=== PATIENT | male | born 1955 | race Caucasian/White ===

== ENCOUNTER 2020-06-13 14:54 | Inpatient (IN) | payer MEDICARE, OTHER ==
[~2020-06-13] VITALS: Ht 167.6 cm; Wt 47.2 kg
[2020-06-13] MEDS ORDERED: IV NS 0.9% 500 ML BAG IV ONE (15:00)
--- NOTE | 2020-06-13 15:00 | NUR ---
[id number] FRM JAIL FOR GENERALIZED WEAKNESS AND CONFUSION.BG 127 MACHINE RIVETER . pt alert and verbally responsive. no c/o pain or discomfort at this time. awaiting for MD haney
--- NOTE | 2020-06-13 15:09 | NUR ---
iv line established, blood drawn and setn to lab
--- NOTE | 2020-06-13 15:59 | NUR ---
urine collected and sent to lab
[2020-06-13 16:06] LABS: BASOPHILS % (AUTO) 0.2 % (0.0-2.0); EOSINOPHILS % (AUTO) 0.2 % (0.0-6.0); HEMATOCRIT 44 % (39-51); HEMOGLOBIN 14.4 g/dL (13.5-17.5); LYMPHOCYTES # (AUTO) 1.2 /CMM (0.8-4.8); LYMPHOCYTES % (AUTO) 17.2 % (20.0-44.0); MEAN CORPUSCULAR HGB CONC 33 g/dl (31.0-36.0); MEAN CORPUSCULAR VOLUME 100 fL (80-96); MONOCYTES # (AUTO) 0.3 /CMM (0.1-1.30); MONOCYTES % (AUTO) 3.9 % (2.0-12.0); NEUTROPHILS # (AUTO) 5.3 /CMM (1.8-8.9); NEUTROPHILS % (AUTO) 78.5 % (43.0-81.0); PLATELET COUNT (AUTO) 186 /CMM (150-450); RED BLOOD CELL COUNT(AUTO) 4.39 MIL/uL (4.5-6.0); WHITE BLOOD COUNT (AUTO) 6.8 K/uL (4.3-11.0)
[2020-06-13 16:17] LABS: CALCIUM, SERUM 8.8 mg/dL (8.5-10.1); CARBON DIOXIDE 30 mmol/L (21-32); CHLORIDE 104 mmol/L (98-107); CREATININE 0.8 mg/dL (0.6-1.3); GLUCOSE 106 mg/dL (74-106); POTASSIUM 4.2 mmol/L (3.5-5.1); SODIUM SERUM 140 mmol/L (136-145); UREA NITROGEN, BLOOD 19 mg/dL (7-18)
[2020-06-13 16:17] LABS: BILIRUBIN,URINE Negative (NEGATIVE); BLOOD, URINE Negative Ery/uL (NEGATIVE); COLOR,URINE YELLOW (YELLOW); LEUKOCYTE ESTERASE ,URINE Negative (NEGATIVE); NITRITE, URINE Negative (NEGATIVE); PROTEIN,URINE Negative (NEGATIVE); UGLUCOSE Negative (NEGATIVE); UROBILINOGEN,URINE 0.2 EU/dL (0.2)
[2020-06-13 16:18] LABS: SERUM AMMONIA < 10 umol/L (11-32)
[2020-06-13 16:25] LABS: ALANINE AMINOTRANSFERASE 51 U/L (12-78); ALBUMIN 3.7 g/dL (3.4-5.0); ALKALINE PHOSPHATASE 74 U/L (46-116); ASPARTATE AMINOTRANSFERASE 28 U/L (15-37); BILIRUBIN,DIRECT 0.1 mg/dL (0.0-0.2); BILIRUBIN,TOTAL 0.5 mg/dL (0.2-1.0); TOTAL PROTEIN, SERUM 7.4 g/dL (6.4-8.2)
[2020-06-13] MEDS ORDERED: ACET325T53 PO (16:27)
[2020-06-13] MEDS ORDERED: ZINC1CAP3 PO (16:27)
[2020-06-13] MEDS ORDERED: NA P133E RC (16:27)
[2020-06-13] MEDS ORDERED: DOCU-141 PO (16:27)
[2020-06-13] MEDS ORDERED: ASCO500C17 PO (16:27)
[2020-06-13] MEDS ORDERED: FAMO20TA80 PO (16:27)
[2020-06-13] MEDS ORDERED: RISP0.5T5 PO (16:27)
[2020-06-13] MEDS ORDERED: MAGN400O6 PO (16:27)
[2020-06-13] MEDS ORDERED: SENN-175 PO (16:27)
[2020-06-13] MEDS ORDERED: MULT-188 PO (16:27)
[2020-06-13] MEDS ORDERED: MEMA10TA PO (16:27)
[2020-06-13] MEDS ORDERED: DONE5TAB7 PO (16:27)
--- NOTE | 2020-06-13 17:26 | NUR ---
AWAITING CALL FROM ADMITING MD.
--- NOTE | 2020-06-13 18:00 | NUR ---
CALLED NURSING SUP FOR TELE BED.
[2020-06-13] MEDS ORDERED: MAGNESIUM HYDROXIDE 30 ML UDC PO PRN (18:30)
[2020-06-13] MEDS ORDERED: Z GUARD REMEDY 2 OZ OINT TP PRN (18:30)
[2020-06-13] MEDS ORDERED: MAG HYDROX/AL HYDROX/SIMETH 30 ML UDC PO PRN (18:30)
[2020-06-13] MEDS ORDERED: ACETAMINOPHEN 325 MG TABLET PO PRN (18:30)
[2020-06-13] MEDS ORDERED: ZOLPIDEM TARTRATE 5 MG TABLET PO PRN (18:30)
[2020-06-13] MEDS ORDERED: HYDROCODONE/APAP 5/325MG TABLET PO PRN (18:30)
[2020-06-13] MEDS ORDERED: ONDANSETRON HCL/PF 4 MG/2 ML VIAL IVP PRN (18:30)
[2020-06-13 19:45] LABS: ABG BASE EXCESS -0.9 mmol/L; ABG OXYGEN SATURATION 96.3 % (92.0-98.5); ABG PCO2 41.5 mmHg (35.0-45.0); ABG PH 7.383 (7.350-7.450); ABG PO2 90.6 mmHg (75.0-100.0); AaDO2 9.4 mmHg; COHb 0.2 % (0.5-1.5); MetHb 0.3 % (0.0-1.5); O2Hb 95.8 % (94.0-97.0); SITE, ABG Right Radial; VENT MODE, BG room air
--- NOTE | 2020-06-13 21:38 | NUR ---
NEW BED GIVE BY WHOLESALE DIAMOND BROKER 250 TELE OVERFLOW TO ICU
--- NOTE | 2020-06-13 21:38 | NUR ---
WAIT FOR FRUIT HARVESTER MACHINE OPERATOR TO CALL, NEED MORE NURSES TO ACCOMODATE PATIENT.
--- NOTE | 2020-06-14 02:11 | NUR ---
REPORT GIVEN TO ED RN FOR ROBBI.
--- NOTE | 2020-06-14 02:24 | NUR ---
PATIENT TAKEN TO ASSIGNED ROOM FOR ROBBI.
[2020-06-14] MEDS: IV D5/0.45 NACL 1,000 ML IV PRN ×2 (02:28→19:33)
[2020-06-14 04:00] VITALS: BP 114/47
--- NOTE | 2020-06-14 04:39 | NUR ---
ELECTRONIC TECH PT WAS ADMITTED FROM ER WITH DIAGNOSIS ACUTE ENCEPHALOPATHY. PT IS TELE STATUS. RODGERS VIRUS RAPID TEST PENDING.PT IS AWAKE, ALERT, ORIENTED X 2. SPEECH IS CLEAR. MOVES ALL EXTREMITIES, LEGS ARE WEAKER. VSS, AFEBRILE, SCOPE-SR-SB. LUNGS ARE CLEAR, PT IS ON RA. IV SITE-RIGHT AC # 18. MAIN IV D51/2 NS @ 75 ML/HR. F/C DRAINS SUFFICIENT AMT. OF CLEAR YELLOW URINE.
[2020-06-14 06:54] LABS: BASOPHILS % (AUTO) 0.5 % (0.0-2.0); EOSINOPHILS % (AUTO) 0.3 % (0.0-6.0); HEMATOCRIT 43 % (39-51); HEMOGLOBIN 14.4 g/dL (13.5-17.5); LYMPHOCYTES # (AUTO) 1.3 /CMM (0.8-4.8); LYMPHOCYTES % (AUTO) 20.5 % (20.0-44.0); MEAN CORPUSCULAR HGB CONC 33 g/dl (31.0-36.0); MEAN CORPUSCULAR VOLUME 100 fL (80-96); MONOCYTES # (AUTO) 0.4 /CMM (0.1-1.30); MONOCYTES % (AUTO) 5.9 % (2.0-12.0); NEUTROPHILS # (AUTO) 4.6 /CMM (1.8-8.9); NEUTROPHILS % (AUTO) 72.8 % (43.0-81.0); PLATELET COUNT (AUTO) 175 /CMM (150-450); RED BLOOD CELL COUNT(AUTO) 4.34 MIL/uL (4.5-6.0); WHITE BLOOD COUNT (AUTO) 6.3 K/uL (4.3-11.0)
[2020-06-14 07:28] LABS: CALCIUM, SERUM 8.7 mg/dL (8.5-10.1); CREATININE 0.7 mg/dL (0.6-1.3); MAGNESIUM 2.5 mg/dL (1.8-2.4); PHOSPHORUS 3.2 mg/dL (2.5-4.9); POTASSIUM 3.8 mmol/L (3.5-5.1)
--- NOTE | 2020-06-14 07:30 | NUR ---
PT RECEIVED IN BED, EYES OPEN ALERT AND ORIENTED X 2. PT ON RA O2 SATURATION 100% RA. NO RESPIRATORY DISTRESS OR SOB. PT HAS RAC 18 THAT IS INFILTRATED AND REMOVED. IV D5 1/2 NS TO BE RUN. BED IN LOCKED LOWEST POSITION, CALL LIGHT WITHIN REACH. ALL SAFETY MEASURES IN PLACE. WILL CONTINUE TO MONITOR CLOSELY
[2020-06-14 07:31] LABS: THYROID STIMULATING HORMONE 1.662 uIU/mL (0.358-3.74)
[2020-06-14 08:00] VITALS: BP 127/77
--- NOTE | 2020-06-14 08:55 | NUR ---
NEW IV STARTED: RFA #20. CLEAR AND PATENT WITH GOOD BLOOD RETURN. IV D5 1/2 NS RESUMED
[2020-06-14] MEDS ORDERED: PANTOPRAZOLE 40 MG VIAL IV SCH (09:00)
[2020-06-14] MEDS ORDERED: DEXTROSE 50%-WATER 50 ML DISP.SYRIN IV PRN (14:00)
[2020-06-14 16:00] VITALS: BP 127/78
--- NOTE | 2020-06-14 16:43 | NUR ---
PER ICU ARCHITECTURE PROFESSOR ROHIT PATIENT CONFUSED AND KEEP GETTING OUT OF BED,UNABLE TO FOLLOW COMMAND,OBTAINED ORDER FOR SITTER.NURSING SUP NOTIFIED.
[2020-06-14 16:58] VITALS: BP 130/79
--- NOTE | 2020-06-14 17:00 | NUR ---
REPORT GIVEN TO BASSAM RENO IN [place] FOR TRANSFER OF CARE.
[2020-06-14] MEDS: BLOOD SUGAR DIAGNOSTIC 1 EACH STRIP IN SCH ×2 (17:30→21:30)
--- NOTE | 2020-06-14 17:30 | NUR ---
RN NOTES RECEIVED PT FROM ICU. REPORT FROM TAM BANEGAS. WILL CONTINUE TO MONITOR
[2020-06-14] MEDS: risperiDONE 0.25 MG TABLET PO SCH (18:59)
--- NOTE | 2020-06-14 19:03 | NUR ---
patient more awake and alert,refuse romo wanted it remove.
--- NOTE | 2020-06-14 19:03 | NUR ---
aable to swallow ice chips no difficulty.
--- NOTE | 2020-06-14 19:04 | NUR ---
dr. martini made aware will discontinue romo and will give po meds.
--- NOTE | 2020-06-14 19:30 | NUR ---
RN OPENING NOTES PATIENT ALERT AND ORIENTED X1, CONFUSED. NO SOB OR ANY RESPIRATORY DISTRESS. ON ROOM AIR, 02 SAT 98%. DENIES ANY PAIN AT THIS TIME. WITH RIGHT FA #18, INTACT AND PATENT WITH D5 1/2 NS @ 75 MLS/HR. NO S/S OF ANY INFILTRATION. BED LOCKED AND IN LOWEST POSITION. SIDERAILS UP X2. ALL SAFETY MEASURES IMPLEMENTED. CALL LIGHT WITHIN REACH. WILL COTNINUE TO MONITOR.
--- NOTE | 2020-06-14 19:31 | NUR ---
RN CLOSING NOTES PT RESTING IN BED. A/O X1, CONFUSED. R FA INTACT, PATENT AND FLUSHED. D5 1/2 NS RUNNING @75MLS/HR INFUSING WELL. REMOVED SALDANA CATH ORDERED BY . ABLE TO TOLERATE ICE CHIPS AND WATER. SAFETY MEASURES IN PLACE. CALL LIGHT WITHIN REACH. BED ALARM ON. BED LOCKED AND AT LOWEST POSITION. WILL ENDORSE TO NIGHT NURSE FOR ROBBI
[2020-06-14 20:00] VITALS: BP 128/75
[2020-06-14] MEDS: DONEPEZIL 5 MG TABLET PO SCH (21:25)
[2020-06-14] MEDS: INSULIN REGULAR, HUMAN 100 UNIT/ML 3 ML VIAL SQ PRN (21:32)
--- NOTE | 2020-06-14 21:40 | NUR ---
GAVE DUE MEDICATIONS PO. PATIENT TOLERATED WELL. NO COUGHING OR ASPIRATION NOTED. PATIENT ABLE TO DRINK 50 ML OF WATER WITHOUT DIFFICULTY. WILL CONTINUE TO MONITOR.
[2020-06-15] VITALS: BP 109/71
[2020-06-15 04:00] VITALS: BP 129/83
[2020-06-15 06:14] LABS: BASOPHILS % (AUTO) 0.4 % (0.0-2.0); EOSINOPHILS % (AUTO) 0.5 % (0.0-6.0); HEMATOCRIT 43 % (39-51); HEMOGLOBIN 14.6 g/dL (13.5-17.5); LYMPHOCYTES # (AUTO) 1.3 /CMM (0.8-4.8); LYMPHOCYTES % (AUTO) 24.8 % (20.0-44.0); MEAN CORPUSCULAR HGB CONC 34 g/dl (31.0-36.0); MEAN CORPUSCULAR VOLUME 98 fL (80-96); MONOCYTES # (AUTO) 0.4 /CMM (0.1-1.30); MONOCYTES % (AUTO) 7.5 % (2.0-12.0); NEUTROPHILS # (AUTO) 3.6 /CMM (1.8-8.9); NEUTROPHILS % (AUTO) 66.8 % (43.0-81.0); PLATELET COUNT (AUTO) 197 /CMM (150-450); RED BLOOD CELL COUNT(AUTO) 4.41 MIL/uL (4.5-6.0); WHITE BLOOD COUNT (AUTO) 5.4 K/uL (4.3-11.0)
[2020-06-15 06:45] LABS: CREATININE 0.8 mg/dL (0.6-1.3); MAGNESIUM 2.4 mg/dL (1.8-2.4); PHOSPHORUS 2.9 mg/dL (2.5-4.9); POTASSIUM 3.9 mmol/L (3.5-5.1)
--- NOTE | 2020-06-15 07:22 | NUR ---
RN CLOSING NOTE PATIENT ALERT AND ORIENTED X1, CONFUSED. NO SOB OR ANY RESPIRATORY DISTRESS. ON ROOM AIR, 02 SAT 98%. DENIES ANY PAIN AT THIS TIME. VOIDED X2, NO S/S OF ANY URINARY RETENTION. ON TELE MONITORING, SINUS RHYTHM HR 70'S. BED LOCKED AND IN LOWEST POSITION. SIDERAILS UP X2. ALL SAFETY MEASURES IMPLEMENTED. CALL LIGHT WITHIN REACH. ENDORSED TO NEXT SHIFT.
--- NOTE | 2020-06-15 07:58 | NUR ---
RN OPENING NOTE PATIENT A/O X1, CONFUSED. CURRENTLY ON ROOM AIR WITH OXYGEN SATURATION OF 98% TELE READING SINUS RHYTHM. CURRENTLY HAS A R FOREARM 20G IV. HYDRATION WAS STOPPED DUE TO PATIENT PULLING ON TUBING. IV INTACT WITH NO S/S OF INFECTION AT THIS TIME. NO REDNESS AND NO SWELLING. PATIENT CURRENTLY HAS SITTER. [facility] DIET, TOLERATING WELL AT THIS TIME. BED LOCKED IN LOWEST POSITION, SIDE RAILS UP X2, CALL LIGHT WITHIN REACH. ALL SAFETY MEASURES IMPLEMENTED PER HOSPITAL PROTOCOL.
[2020-06-15 08:00] VITALS: BP 148/70
[2020-06-15] MEDS: BLOOD SUGAR DIAGNOSTIC 1 EACH STRIP IN SCH ×4 (08:04→21:37)
[2020-06-15] MEDS: PANTOPRAZOLE 40 MG TABLET.DR PO SCH (08:51)
[2020-06-15] MEDS: ZINC SULFATE 220 MG CAPSULE PO SCH (08:51)
[2020-06-15] MEDS: MEMANTINE HCL 5 MG TABLET PO SCH (08:51)
[2020-06-15] MEDS: DOCUSATE SODIUM 100 MG CAPSULE PO SCH ×2 (08:52→17:24)
[2020-06-15] MEDS: risperiDONE 0.25 MG TABLET PO SCH ×2 (08:52→17:25)
[2020-06-15] MEDS: INSULIN REGULAR, HUMAN 100 UNIT/ML 3 ML VIAL SQ PRN ×2 (09:07→21:37)
--- NOTE | 2020-06-15 14:28 | NUR ---
MRI BIOETH[employer] PATIENT DOES NOT HAVE A NEXT OF KIN, MRI NEEDS TO BE SIGNED BY [employer]. PATIENT IS UNABLE TO SIGN DUE TO BEING CONFUSED.
[2020-06-15 16:00] VITALS: BP 92/62
--- NOTE | 2020-06-15 19:10 | NUR ---
RN CLOSING NOTE PATIENT A/O X1, CONFUSED. NO SOB OR ANY RESPIRATORY DISTRESS AT THIS TIME. PATIENT IS REFUSING FLUID REPLACEMENT AT THIS TIME. MRI SCHEDULED IN THE MORNING, NO NEXT OF KIN FOR CONSENT. FOLLOW UP IN THE AM. PATIENT ADMITTED TO MED SURG. IV INTACT AND PATENT. ALL SAFETY MEASURES TAKEN. BED IN LOWEST POSITION. CALL LIGHT WITHIN REACH.
--- NOTE | 2020-06-15 19:35 | NUR ---
RN OPENING NOTE PATIENT A/O X1, CONFUSED. NO S/S OF RESPIRATORY DISTRESS. O2 SATURATION 99% IN ROOM AIR. DENIES ANY PAIN AT THIS TIME. WITH RIGHT FA #20 INTACT AND PATENT, REFUSES FLUID REPLACEMENT AT THIS TIME. KEPT CLEAN AND DRY. BED LOCKED AND IN LOWEST POSITION. SIDE RAILS UP X2. ALL SAFETY MEASURES IMPLEMENTED. CALL LIGHT WITHIN REACH. WILL CONTINUE TO MONITOR.
[2020-06-15 20:00] VITALS: BP 96/58
[2020-06-15] MEDS: DONEPEZIL 5 MG TABLET PO SCH (21:28)
[2020-06-16 04:00] VITALS: BP 114/76
[2020-06-16 05:55] LABS: BASOPHILS % (AUTO) 0.6 % (0.0-2.0); EOSINOPHILS % (AUTO) 0.5 % (0.0-6.0); HEMATOCRIT 42 % (39-51); LYMPHOCYTES # (AUTO) 1.2 /CMM (0.8-4.8); LYMPHOCYTES % (AUTO) 24.7 % (20.0-44.0); MEAN CORPUSCULAR HGB CONC 33 g/dl (31.0-36.0); MEAN CORPUSCULAR VOLUME 98 fL (80-96); MONOCYTES # (AUTO) 0.4 /CMM (0.1-1.30); MONOCYTES % (AUTO) 8.7 % (2.0-12.0); NEUTROPHILS # (AUTO) 3.3 /CMM (1.8-8.9); NEUTROPHILS % (AUTO) 65.5 % (43.0-81.0); PLATELET COUNT (AUTO) 186 /CMM (150-450); RED BLOOD CELL COUNT(AUTO) 4.29 MIL/uL (4.5-6.0)
[2020-06-16 06:13] LABS: CREATININE 0.7 mg/dL (0.6-1.3); MAGNESIUM 2.4 mg/dL (1.8-2.4); PHOSPHORUS 3.8 mg/dL (2.5-4.9); POTASSIUM 3.5 mmol/L (3.5-5.1)
--- NOTE | 2020-06-16 07:03 | NUR ---
RN CLOSING NOTE PATIENT A/O X1, CONFUSED. NO S/S OF RESPIRATORY DISTRESS. O2 SATURATION 99% IN ROOM AIR. DENIES ANY PAIN AT THIS TIME. NO SIGNIFICANT CHANGE OF CONDITION DURING SHIFT. KEPT CLEAN AND DRY. BED LOCKED AND IN LOWEST POSITION. SIDE RAILS UP X2. ALL SAFETY MEASURES IMPLEMENTED. CALL LIGHT WITHIN REACH. WILL CONTINUE TO MONITOR.
--- NOTE | 2020-06-16 07:45 | NUR ---
RN OPENING NOTE RECEIVED PATIENT IN BED. IS A/O X1, CONFUSED. NO S/S OF RESPIRATORY DISTRESS OR SOB NOTED. O2 SATURATION 99% IN ROOM AIR. DENIES ANY PAIN AT THIS TIME. LFA IS INTACT, FLUSHING AND NO SIGN OF INFILTRATION OR INFECTION NOTED . SAFETY MEASUREMENTS ARE IMPLEMENTED PER HOSPITAL POLICY. BED LOCKED AND IN LOWEST POSITION. SIDE RAILS UP X2. CALL LIGHT WITHIN REACH. WILL CONTINUE TO MONITOR.
[2020-06-16] MEDS: BLOOD SUGAR DIAGNOSTIC 1 EACH STRIP IN SCH ×3 (07:52→18:05)
[2020-06-16] MEDS: PANTOPRAZOLE 40 MG TABLET.DR PO SCH (08:07)
[2020-06-16] MEDS: MEMANTINE HCL 5 MG TABLET PO SCH (08:07)
[2020-06-16] MEDS: DOCUSATE SODIUM 100 MG CAPSULE PO SCH ×2 (08:07→16:18)
[2020-06-16] MEDS: risperiDONE 0.25 MG TABLET PO SCH ×2 (08:07→16:18)
[2020-06-16] MEDS: ZINC SULFATE 220 MG CAPSULE PO SCH (08:07)
[2020-06-16] MEDS ORDERED: ASPIRIN 81 MG TAB.CHEW PO SCH (09:00)
[2020-06-16 12:00] VITALS: BP 114/76
--- NOTE | 2020-06-16 13:00 | NUR ---
RN NOTES RADIOLOGY PICKED UP PATIENT FOR MRI WO CONTRAST STUDY
--- NOTE | 2020-06-16 14:00 | NUR ---
RN NOTES PT HAS NO SOB OR DISTRESS NOTED.WILL CONTINUE TO MONITOR
--- NOTE | 2020-06-16 14:45 | NUR ---
RN NOTES PT CAME BACK FROM THE MRI OF THE BRAIN STUDY IN STABLE CONDITION
--- NOTE | 2020-06-16 16:36 | NUR ---
RN NOTES GOR DC ORDER
[2020-06-16] MEDS ORDERED: ASPI-1169 PO (16:46)
--- NOTE | 2020-06-16 17:29 | NUR ---
RN NOTES GAVE REPORT TO REANNA PITTS
--- NOTE | 2020-06-16 18:43 | NUR ---
RN CLOSING NOTES PATIENT IN BED. IS A/O X1, CONFUSED. NO S/S OF RESPIRATORY DISTRESS OR SOB NOTED. O2 SATURATION 99% IN ROOM AIR. DENIES ANY PAIN AT THIS TIME. REMOVED IV DUE TO DC ORDER. SAFETY MEASUREMENTS ARE IMPLEMENTED PER HOSPITAL POLICY. BED LOCKED AND IN LOWEST POSITION. SIDE RAILS UP X2. CALL LIGHT WITHIN REACH. WILL ENDORSE TO DIAGNOSTIC CARDIAC SONOGRAPHER FOR ROBBI
== END 2020-06-16 19:00 | DRG 640 ==
LOC: ER 14:58 → TELE2 22:02 → ICU 06-14 02:18 → TELE1 06-14 16:30 → MEDSG1 06-15 07:43
PROVIDERS: ADMIT Student in an Organized Health Care Education/Training Program; ATTEND Student in an Organized Health Care Education/Training Program
DX: E86.0 Dehydration (principal); G93.41 Metabolic encephalopathy; G30.9 Alzheimer's disease, unspecified; F02.80 Dementia in other diseases classified elsewhere, unspecified severity, without behavioral disturbance, psychotic disturbance, mood disturbance, and anxiety; E78.5 Hyperlipidemia, unspecified; E11.9 Type 2 diabetes mellitus without complications; E78.00 Pure hypercholesterolemia, unspecified; Z88.8 Allergy status to other drugs, medicaments and biological substances; Z79.899 Other long term (current) drug therapy
CPT/HCPCS: 36415; 36600; 70450-TC; 70551-TC; 71045-TC; 80048-TC; 80061-TC; 80076-TC; 81001; 82140-TC; 82803-TC; 82962-TC; 83735-TC; 84100-TC; 84443-TC; 84484-TC; 85025-TC; 85730-TC; 87081-TC; 92526; 92611-TC; 93307-TC; 95819-TC; C9113; G0378; J1815; J3490; J7040; U0003

== ENCOUNTER 2021-06-04 14:01 | Inpatient (IN) | payer MEDICARE, OTHER ==
[~2021-06-04] VITALS: Ht 157.5 cm; Wt 45.4 kg
[~2021-06-04 14:01] MED LIST: ACET325T53 PO; ASCO500C17 PO; ASPI-1169 PO; DOCU-141 PO; DONE5TAB7 PO; FAMO20TA80 PO; MAGN400O6 PO; MEMA10TA PO; MULT-188 PO; NA P133E RC; RISP0.5T5 PO; SENN-175 PO; ZINC1CAP3 PO
--- NOTE | 2021-06-04 14:25 | NUR ---
CHIVO STAUFFER FROM CARE FACILITY FOR INCREASED AGITATION AND COMBATIVENESS STRIKING FELLOW RESIDENTS AND STAFF. THE PATIENT IS CONFUSED. IN ROOM AIR. RESPIRATION REGULAR AND UNLABORED. THE PATIENT IS IN NO APPARENT DISTRESS. CALM AT THIS TIME. WILL CONTINUE TO MONITOR THE PATIENT.
--- NOTE | 2021-06-04 14:38 | NUR ---
URINE COLLECTED AND SENT TO THE LAB
[2021-06-04 15:14] LABS: BASOPHILS % (AUTO) 0.4 % (0.0-2.0); EOSINOPHILS % (AUTO) 0.2 % (0.0-6.0); HEMATOCRIT 40 % (39-51); HEMOGLOBIN 13.5 g/dL (13.5-17.5); LYMPHOCYTES # (AUTO) 1.7 K/uL (0.8-4.8); LYMPHOCYTES % (AUTO) 24.9 % (20.0-44.0); MEAN CORPUSCULAR HGB CONC 34 g/dl (31.0-36.0); MEAN CORPUSCULAR VOLUME 99 fL (80-96); MONOCYTES # (AUTO) 0.5 K/uL (0.1-1.30); MONOCYTES % (AUTO) 6.8 % (2.0-12.0); NEUTROPHILS # (AUTO) 4.6 K/uL (1.8-8.9); NEUTROPHILS % (AUTO) 67.7 % (43.0-81.0); PLATELET COUNT (AUTO) 218 K/uL (150-450); RED BLOOD CELL COUNT(AUTO) 4.05 MIL/uL (4.5-6.0); WHITE BLOOD COUNT (AUTO) 6.8 K/uL (4.3-11.0)
[2021-06-04 15:26] LABS: CARBON DIOXIDE 29 mmol/L (21-32); CHLORIDE 104 mmol/L (98-107); CREATININE 0.9 mg/dL (0.6-1.3); GLUCOSE 109 mg/dL (74-106); POTASSIUM 4.6 mmol/L (3.5-5.1); SODIUM SERUM 141 mmol/L (136-145); UREA NITROGEN, BLOOD 21 mg/dL (7-18)
--- NOTE | 2021-06-04 15:28 | NUR ---
covid swab done and sent to the lab
[2021-06-04 15:31] LABS: BILIRUBIN,URINE NEGATIVE (NEGATIVE); COLOR,URINE YELLOW (YELLOW); LEUKOCYTE ESTERASE ,URINE NEGATIVE (NEGATIVE); NITRITE, URINE NEGATIVE (NEGATIVE); PROTEIN,URINE NEGATIVE (NEGATIVE); UGLUCOSE NEGATIVE (NEGATIVE); UROBILINOGEN,URINE 0.2 EU/dL (0.2)
[2021-06-04 15:31] LABS: ALANINE AMINOTRANSFERASE 41 U/L (12-78); ALBUMIN 3.8 g/dL (3.4-5.0); ALCOHOL, BLOOD < 3 mg/dL (0-0); ALKALINE PHOSPHATASE 87 U/L (46-116); ASPARTATE AMINOTRANSFERASE 29 U/L (15-37); BILIRUBIN,DIRECT 0.1 mg/dL (0.0-0.2); BILIRUBIN,TOTAL 0.2 mg/dL (0.2-1.0); TOTAL PROTEIN, SERUM 7.5 g/dL (6.4-8.2)
--- NOTE | 2021-06-04 16:08 | NUR ---
CALLED THEATER SET PRODUCTION DESIGNER ART, ON THE WAY
[2021-06-04] MEDS ORDERED: ROSU20TA2 PO (17:15)
--- NOTE | 2021-06-04 18:34 | NUR ---
ROOM 213
--- NOTE | 2021-06-04 18:39 | NUR ---
REPORT GIVEN TO NURSE RESTREPO FROM [facility]
--- NOTE | 2021-06-04 19:11 | NUR ---
REPORT GIVEN TO NURSE MAYA FOR ROBBI
--- NOTE | 2021-06-04 19:23 | NUR ---
pt was transferred to [facility] in stable condition
--- NOTE | 2021-06-04 19:45 | NUR ---
GPS CUSTOMER SUCCESS ADVOCATE NOTES RECEIVED PATIENT PER CINDI FROM ER,ADMITTED FOR PSYCHOSIS,FROM [facility],WITH PRESENTING BEHAVIOR OF CONFUSION,POOR IMPULSE CONTROL,STRIKING OTHER STAFF,WAS PLACED ON 72 HOLD STARTED ON 06/04/2021 AT 1735 AND WILL END ON 06/07/2021 AT 1735.ADMITTED UNDER THE CARE OF DR NORIEGA.CALM AND QUIET UPON ARRIVAL ON THE UNIT,ABLE TO WALK WITH STANDBY ASSIST,HE IS GREEK,ABLE TO SPEAK AND UNDERSTAND PERUVIAN.ABLE TO FOLLOW COMMAND.NO SKIN ISSUES.DENIES SUICIDAL IDEATION.WILL CONTINUE TO MONITOR STATUS.
[2021-06-04 20:00] VITALS: BP 148/92
[2021-06-04] MEDS ORDERED: MAG HYDROX/AL HYDROX/SIMETH 30 ML UDC PO PRN (23:00)
[2021-06-04] MEDS ORDERED: ACETAMINOPHEN 325 MG TABLET PO PRN (23:00)
[2021-06-04] MEDS ORDERED: MAGNESIUM HYDROXIDE 30 ML UDC PO PRN (23:00)
[2021-06-04] MEDS ORDERED: BLOOD SUGAR DIAGNOSTIC 1 EACH STRIP IN ONE (23:30)
[2021-06-05] MEDS ORDERED: MAGNESIUM HYDROXIDE 30 ML UDC PO PRN
[2021-06-05] MEDS ORDERED: ACETAMINOPHEN 325 MG TABLET PO PRN
[2021-06-05] MEDS ORDERED: NA PHOS,M-B/NA PHOS,DI-BA 1 EA ENEMA RC PRN
--- NOTE | 2021-06-05 00:50 | NUR ---
[facility]PS RN NOTES MEDICAL HOSPITALIST MADE AWARE OF THE ADMISSION,WITH ORDERS NOTED AND CARRIED OUT.
--- NOTE | 2021-06-05 01:30 | NUR ---
GPS RN NOTES FOUND BY CHRISTAL WILKINS,PATIENT AWAKE,WALKING IN THE ROOM NAKED,PEED ON THE FLOOR,CONFUSED.
[2021-06-05] MEDS: LORAZEPAM 0.5 MG TABLET PO PRN ×3 (01:45→22:04)
--- NOTE | 2021-06-05 01:45 | NUR ---
GPS RN NOTES CLEANED AND PUT ON HIRAL CHAIR,NOURISHMENT PROVIDED,GIVEN ATIVAN 0.5MG PO FOR ANXIETY AND AGITATION.
[2021-06-05 08:00] VITALS: BP 111/75
[2021-06-05] MEDS: MULTIVITAMINS,THERAGRAN 1 UDTAB TABLET PO SCH (08:39)
[2021-06-05] MEDS: FAMOTIDINE (20 MG) 20 MG TABLET PO SCH (08:39)
[2021-06-05] MEDS: DOCUSATE SODIUM 100 MG CAPSULE PO SCH ×2 (08:39→16:25)
[2021-06-05] MEDS: ATORVASTATIN 40 MG TABLET PO SCH (08:39)
[2021-06-05] MEDS: ASCORBIC ACID 500 MG TABLET PO SCH ×2 (08:39→16:26)
[2021-06-05] MEDS: MEMANTINE HCL 5 MG TABLET PO SCH (08:40)
--- NOTE | 2021-06-05 10:12 | NUR ---
BJ Initial Discharge Plan: Patient resides at [facility] and will return back upon dc. Patient does not have any contact. BJ will work with the MD and treatment team to coordinate appropriate discharge.
--- NOTE | 2021-06-05 11:12 | NUR ---
BJ Facility Contact: BJ spoke with Fiorella admission from [facility] and she stated pt is welcomed back upon dc.
[2021-06-05] MEDS: risperiDONE 1 MG TABLET PO SCH ×3 (13:00→16:26)
--- NOTE | 2021-06-05 13:47 | NUR ---
Risperdal po not given, first dose given at 1346
[2021-06-05 16:00] VITALS: BP 137/67
[2021-06-05] MEDS: GABAPENTIN 100 MG CAPSULE PO SCH (16:25)
--- NOTE | 2021-06-05 18:25 | NUR ---
SENIOR RADIATION PROTECTION TECHNICIAN reported to the the primary about the bruise in the right arm. Per SENIOR RADIATION PROTECTION TECHNICIAN it was there since morning and thinking picture taken already. No open wound noted only bruises.
[2021-06-05 19:46] VITALS: BP 151/94
[2021-06-05 19:54] VITALS: BP 151/94
[2021-06-05] MEDS: DONEPEZIL 5 MG TABLET PO SCH (21:38)
[2021-06-05] MEDS: SENNOSIDES 8.6 MG TABLET PO SCH (21:38)
--- NOTE | 2021-06-05 22:06 | NUR ---
RN NOTE: ANXIETY PATIENT IS NOTED TO BE ANXIOUS AND RESTLESS. PRN ATIVAN 0.5 MG PO ADMINISTERED. WILL CONTINUE TO MONITOR.
[2021-06-06 08:00] VITALS: BP 155/90
[2021-06-06 08:09] LABS: BASOPHILS % (AUTO) 0.3 % (0.0-2.0); EOSINOPHILS % (AUTO) 0.4 % (0.0-6.0); HEMATOCRIT 44 % (39-51); HEMOGLOBIN 14.9 g/dL (13.5-17.5); LYMPHOCYTES # (AUTO) 1.7 K/uL (0.8-4.8); LYMPHOCYTES % (AUTO) 24.9 % (20.0-44.0); MEAN CORPUSCULAR HGB CONC 34 g/dl (31.0-36.0); MEAN CORPUSCULAR VOLUME 98 fL (80-96); MONOCYTES # (AUTO) 0.5 K/uL (0.1-1.30); MONOCYTES % (AUTO) 7.2 % (2.0-12.0); NEUTROPHILS # (AUTO) 4.7 K/uL (1.8-8.9); NEUTROPHILS % (AUTO) 67.2 % (43.0-81.0); PLATELET COUNT (AUTO) 226 K/uL (150-450); RED BLOOD CELL COUNT(AUTO) 4.49 MIL/uL (4.5-6.0)
[2021-06-06 08:29] LABS: CALCIUM, SERUM 9.2 mg/dL (8.5-10.1); CREATININE 0.8 mg/dL (0.6-1.3); POTASSIUM 3.8 mmol/L (3.5-5.1)
[2021-06-06] MEDS: MEMANTINE HCL 5 MG TABLET PO SCH (08:55)
[2021-06-06] MEDS: GABAPENTIN 100 MG CAPSULE PO SCH ×2 (08:55→16:29)
[2021-06-06] MEDS: FAMOTIDINE (20 MG) 20 MG TABLET PO SCH (08:55)
[2021-06-06] MEDS: risperiDONE 1 MG TABLET PO SCH ×3 (08:55→16:29)
[2021-06-06] MEDS: ASCORBIC ACID 500 MG TABLET PO SCH ×2 (08:55→16:30)
[2021-06-06] MEDS: DOCUSATE SODIUM 100 MG CAPSULE PO SCH ×2 (08:55→16:29)
[2021-06-06] MEDS: MULTIVITAMINS,THERAGRAN 1 UDTAB TABLET PO SCH (08:55)
[2021-06-06] MEDS: ATORVASTATIN 40 MG TABLET PO SCH (08:56)
[2021-06-06 16:00] VITALS: BP 118/74
[2021-06-06 20:09] VITALS: BP 136/72
[2021-06-06] MEDS: LORAZEPAM 0.5 MG TABLET PO PRN (21:43)
[2021-06-06] MEDS: DONEPEZIL 5 MG TABLET PO SCH (21:43)
[2021-06-06] MEDS: SENNOSIDES 8.6 MG TABLET PO SCH (21:43)
[2021-06-07 08:00] VITALS: BP 132/72
[2021-06-07] MEDS: risperiDONE 1 MG TABLET PO SCH ×3 (08:24→17:38)
[2021-06-07] MEDS: MULTIVITAMINS,THERAGRAN 1 UDTAB TABLET PO SCH (08:24)
[2021-06-07] MEDS: FAMOTIDINE (20 MG) 20 MG TABLET PO SCH (08:24)
[2021-06-07] MEDS: MEMANTINE HCL 5 MG TABLET PO SCH (08:25)
[2021-06-07] MEDS: DOCUSATE SODIUM 100 MG CAPSULE PO SCH ×2 (08:25→17:38)
[2021-06-07] MEDS: ASCORBIC ACID 500 MG TABLET PO SCH ×2 (08:25→17:38)
[2021-06-07] MEDS: ATORVASTATIN 40 MG TABLET PO SCH (08:25)
[2021-06-07] MEDS: GABAPENTIN 100 MG CAPSULE PO SCH ×2 (08:25→17:38)
[2021-06-07 16:00] VITALS: BP 136/90
[2021-06-07 21:02] VITALS: BP 146/95
[2021-06-07] MEDS: SENNOSIDES 8.6 MG TABLET PO SCH (22:28)
[2021-06-07] MEDS: DONEPEZIL 5 MG TABLET PO SCH (22:28)
[2021-06-07] MEDS: LORAZEPAM 0.5 MG TABLET PO PRN (22:31)
--- NOTE | 2021-06-07 22:32 | NUR ---
GPS RN NOTES: PATIENT IS ANXIOUS AND RESTLESS. ATIVAN 0.5MG/1TAB GIVEN PO PRN ORDERED AT 1. WILL CONTINUE TO MONITOR.
[2021-06-08 08:00] VITALS: BP 108/72
[2021-06-08] MEDS: ASCORBIC ACID 500 MG TABLET PO SCH ×2 (09:06→17:57)
[2021-06-08] MEDS: MULTIVITAMINS,THERAGRAN 1 UDTAB TABLET PO SCH (09:06)
[2021-06-08] MEDS: MEMANTINE HCL 5 MG TABLET PO SCH (09:06)
[2021-06-08] MEDS: ATORVASTATIN 40 MG TABLET PO SCH (09:06)
[2021-06-08] MEDS: DOCUSATE SODIUM 100 MG CAPSULE PO SCH ×2 (09:06→17:57)
[2021-06-08] MEDS: FAMOTIDINE (20 MG) 20 MG TABLET PO SCH (09:06)
[2021-06-08] MEDS: risperiDONE 1 MG TABLET PO SCH ×3 (09:06→17:57)
[2021-06-08] MEDS: GABAPENTIN 100 MG CAPSULE PO SCH ×2 (09:06→17:57)
[2021-06-08] MEDS: BENZTROPINE MESYLATE (1 MG) 1 MG TABLET PO SCH ×2 (14:16→21:28)
[2021-06-08 16:00] VITALS: BP 154/86
[2021-06-08 19:34] VITALS: BP 110/68
[2021-06-08] MEDS: DONEPEZIL 5 MG TABLET PO SCH (21:28)
[2021-06-08] MEDS: SENNOSIDES 8.6 MG TABLET PO SCH (21:28)
[2021-06-09 08:00] VITALS: BP 127/67
[2021-06-09] MEDS: MEMANTINE HCL 5 MG TABLET PO SCH (08:49)
[2021-06-09] MEDS: FAMOTIDINE (20 MG) 20 MG TABLET PO SCH (08:50)
[2021-06-09] MEDS: BENZTROPINE MESYLATE (1 MG) 1 MG TABLET PO SCH ×2 (08:50→21:07)
[2021-06-09] MEDS: ATORVASTATIN 40 MG TABLET PO SCH (08:51)
[2021-06-09] MEDS: DOCUSATE SODIUM 100 MG CAPSULE PO SCH ×2 (08:51→17:34)
[2021-06-09] MEDS: risperiDONE 1 MG TABLET PO SCH ×3 (08:51→17:34)
[2021-06-09] MEDS: GABAPENTIN 100 MG CAPSULE PO SCH ×2 (08:51→17:34)
[2021-06-09] MEDS: ASCORBIC ACID 500 MG TABLET PO SCH ×2 (08:51→17:34)
[2021-06-09] MEDS: MULTIVITAMINS,THERAGRAN 1 UDTAB TABLET PO SCH (08:52)
[2021-06-09 15:37] VITALS: BP 114/69
[2021-06-09 20:00] VITALS: BP 127/83
[2021-06-09] MEDS: DONEPEZIL 5 MG TABLET PO SCH (21:06)
[2021-06-09] MEDS: SENNOSIDES 8.6 MG TABLET PO SCH (21:06)
[2021-06-09] MEDS ORDERED: risperiDONE 1 MG TABLET PO SCH (22:00)
[2021-06-10 08:00] VITALS: BP 109/69
[2021-06-10] MEDS: BENZTROPINE MESYLATE (1 MG) 1 MG TABLET PO SCH ×2 (08:36→21:08)
[2021-06-10] MEDS: MULTIVITAMINS,THERAGRAN 1 UDTAB TABLET PO SCH (08:36)
[2021-06-10] MEDS: MEMANTINE HCL 5 MG TABLET PO SCH (08:36)
[2021-06-10] MEDS: ASCORBIC ACID 500 MG TABLET PO SCH ×2 (08:36→16:38)
[2021-06-10] MEDS: ATORVASTATIN 40 MG TABLET PO SCH (08:36)
[2021-06-10] MEDS: DOCUSATE SODIUM 100 MG CAPSULE PO SCH ×2 (08:36→16:38)
[2021-06-10] MEDS: risperiDONE 1 MG TABLET PO SCH ×4 (08:37→21:08)
[2021-06-10] MEDS: FAMOTIDINE (20 MG) 20 MG TABLET PO SCH (08:37)
[2021-06-10] MEDS: GABAPENTIN 100 MG CAPSULE PO SCH ×3 (08:45→16:37)
[2021-06-10 16:00] VITALS: BP 119/74
[2021-06-10 20:21] VITALS: BP 109/73
[2021-06-10] MEDS: SENNOSIDES 8.6 MG TABLET PO SCH (21:08)
[2021-06-10] MEDS: DONEPEZIL 5 MG TABLET PO SCH (21:08)
[2021-06-11 08:00] VITALS: BP 100/55
[2021-06-11] MEDS: MEMANTINE HCL 5 MG TABLET PO SCH (09:24)
[2021-06-11] MEDS: DOCUSATE SODIUM 100 MG CAPSULE PO SCH ×2 (09:24→16:21)
[2021-06-11] MEDS: FAMOTIDINE (20 MG) 20 MG TABLET PO SCH (09:24)
[2021-06-11] MEDS: MULTIVITAMINS,THERAGRAN 1 UDTAB TABLET PO SCH (09:24)
[2021-06-11] MEDS: GABAPENTIN 100 MG CAPSULE PO SCH ×3 (09:25→16:22)
[2021-06-11] MEDS: ATORVASTATIN 40 MG TABLET PO SCH (09:25)
[2021-06-11] MEDS: BENZTROPINE MESYLATE (1 MG) 1 MG TABLET PO SCH ×2 (09:25→21:30)
[2021-06-11] MEDS: ASCORBIC ACID 500 MG TABLET PO SCH ×2 (09:25→16:22)
[2021-06-11] MEDS: risperiDONE 1 MG TABLET PO SCH ×4 (09:25→21:30)
--- NOTE | 2021-06-11 10:23 | NUR ---
SNF Referral: SW sent clinicals to [facility] for placement option.
--- NOTE | 2021-06-11 10:23 | NUR ---
SW Facility Contact: BJ spoke with Fiorella tracy from [facility] who stated that they cannot accept pt back because pt wanders and will need locked.
--- NOTE | 2021-06-11 14:55 | NUR ---
SNF Contact: SW received a call from Dorene from [facility] who stated that pt is accepted.
[2021-06-11 16:00] VITALS: BP 106/77
[2021-06-11 20:00] VITALS: BP 115/81
[2021-06-11] MEDS: SENNOSIDES 8.6 MG TABLET PO SCH (21:30)
[2021-06-11] MEDS: DONEPEZIL 5 MG TABLET PO SCH (21:31)
[2021-06-12 08:00] VITALS: BP 110/63
[2021-06-12] MEDS: risperiDONE 1 MG TABLET PO SCH ×3 (08:01→21:45)
[2021-06-12] MEDS: GABAPENTIN 100 MG CAPSULE PO SCH ×3 (08:02→16:40)
[2021-06-12] MEDS: MULTIVITAMINS,THERAGRAN 1 UDTAB TABLET PO SCH (08:02)
[2021-06-12] MEDS: MEMANTINE HCL 5 MG TABLET PO SCH (08:02)
[2021-06-12] MEDS: ASCORBIC ACID 500 MG TABLET PO SCH ×2 (08:02→16:40)
[2021-06-12] MEDS: DOCUSATE SODIUM 100 MG CAPSULE PO SCH ×2 (08:02→16:40)
[2021-06-12] MEDS: BENZTROPINE MESYLATE (1 MG) 1 MG TABLET PO SCH ×2 (08:02→21:45)
[2021-06-12] MEDS: ATORVASTATIN 40 MG TABLET PO SCH (08:02)
[2021-06-12] MEDS: FAMOTIDINE (20 MG) 20 MG TABLET PO SCH (08:02)
[2021-06-12 15:56] VITALS: BP 103/76
[2021-06-12 20:15] VITALS: BP 110/73
[2021-06-12] MEDS: DONEPEZIL 5 MG TABLET PO SCH (21:45)
[2021-06-12] MEDS: SENNOSIDES 8.6 MG TABLET PO SCH (21:46)
--- NOTE | 2021-06-12 21:48 | NUR ---
GPS RN NOTES: COGENTIN 0.5MG PARTIAL DOSE WASTED PER MD ORDER.
[2021-06-13 08:00] VITALS: BP 112/67
[2021-06-13] MEDS: risperiDONE 1 MG TABLET PO SCH ×3 (08:00→21:32)
[2021-06-13] MEDS: MULTIVITAMINS,THERAGRAN 1 UDTAB TABLET PO SCH (09:02)
[2021-06-13] MEDS: MEMANTINE HCL 5 MG TABLET PO SCH (09:02)
[2021-06-13] MEDS: GABAPENTIN 100 MG CAPSULE PO SCH ×3 (09:02→17:06)
[2021-06-13] MEDS: BENZTROPINE MESYLATE (1 MG) 1 MG TABLET PO SCH ×2 (09:02→21:03)
[2021-06-13] MEDS: ATORVASTATIN 40 MG TABLET PO SCH (09:03)
[2021-06-13] MEDS: FAMOTIDINE (20 MG) 20 MG TABLET PO SCH (09:03)
[2021-06-13] MEDS: DOCUSATE SODIUM 100 MG CAPSULE PO SCH ×2 (09:03→17:06)
[2021-06-13] MEDS: ASCORBIC ACID 500 MG TABLET PO SCH ×2 (09:05→17:06)
[2021-06-13 16:00] VITALS: BP 118/72
[2021-06-13 20:04] VITALS: BP 101/52
[2021-06-13 20:09] VITALS: BP 101/52
[2021-06-13] MEDS: DONEPEZIL 5 MG TABLET PO SCH (21:32)
[2021-06-13] MEDS: SENNOSIDES 8.6 MG TABLET PO SCH (21:32)
[2021-06-14 08:00] VITALS: BP 159/65
[2021-06-14] MEDS: LORAZEPAM 0.5 MG TABLET PO PRN (08:11)
[2021-06-14] MEDS: MULTIVITAMINS,THERAGRAN 1 UDTAB TABLET PO SCH (08:11)
[2021-06-14] MEDS: ASCORBIC ACID 500 MG TABLET PO SCH ×2 (08:12→16:45)
[2021-06-14] MEDS: BENZTROPINE MESYLATE (1 MG) 1 MG TABLET PO SCH ×2 (08:12→21:55)
[2021-06-14] MEDS: FAMOTIDINE (20 MG) 20 MG TABLET PO SCH (08:12)
[2021-06-14] MEDS: MEMANTINE HCL 5 MG TABLET PO SCH (08:12)
[2021-06-14] MEDS: DOCUSATE SODIUM 100 MG CAPSULE PO SCH ×2 (08:12→16:45)
[2021-06-14] MEDS: ATORVASTATIN 40 MG TABLET PO SCH (08:12)
[2021-06-14] MEDS: risperiDONE 1 MG TABLET PO SCH ×3 (08:12→21:56)
[2021-06-14] MEDS: GABAPENTIN 100 MG CAPSULE PO SCH ×4 (08:12→17:25)
--- NOTE | 2021-06-14 08:18 | NUR ---
RN-CO: ATIVAN 0.56 MG PO FOR AGITATION.
[2021-06-14 16:05] VITALS: BP 109/71
[2021-06-14 19:54] VITALS: BP 131/77
[2021-06-14] MEDS: DONEPEZIL 5 MG TABLET PO SCH (21:55)
[2021-06-14] MEDS: SENNOSIDES 8.6 MG TABLET PO SCH (21:56)
--- NOTE | 2021-06-14 22:11 | NUR ---
GPS RN NOTES: COGENTIN 0.5MG PARTIAL DOSE WASTED PER MD ORDER.
--- NOTE | 2021-06-15 07:05 | NUR ---
GPS RN CLOSING NOTES: PATIENT IS CURRENTLY SLEEPING. PATIENT SLEPT 6HR THIS SHIFT. WEEKLY SKIN ASSESSMENT DONE, PICTURES TAKEN AND PLACED IN PATIENT CHART, NO NEW SKIN ISSUES NOTED. NO S/S OF DISTRESS. RESPIRATION EVEN AND UNLABORED WITH EQUAL RISE AND FALL OF THE CHEST, ON ROOM AIR. ALL PATIENT CARE NEEDS HAVE BEEN MET ANTICIPATED. BED IS IN LOWEST POSITION AND LOCKED, SIDE RAILS UP X2 FOR SAFETY. WILL CONTINUE TO MONITOR AND ENDORSE TO AM SHIFT.
--- NOTE | 2021-06-15 07:30 | NUR ---
RN NOTES RECEIVED PATIENT SLEEPING WITH RESPIRATION UNLABORED RESPONDS EASILY TO NAME AND TOUCH,A/O X1 GUARDED,COMPLIANT WITH MEDICATIONS. NEEDS TOTAL CARE WITH ADL'S. ALL NEEDS ATTENDED AND ANTICIPATED. WILL CONT. MONITORING FOR SAFETY AND BEHAVIOR.
[2021-06-15 08:00] VITALS: BP 110/59
[2021-06-15] MEDS: MEMANTINE HCL 5 MG TABLET PO SCH ×3 (09:28→21:06)
[2021-06-15] MEDS: DOCUSATE SODIUM 100 MG CAPSULE PO SCH ×2 (09:28→16:26)
[2021-06-15] MEDS: ASCORBIC ACID 500 MG TABLET PO SCH ×2 (09:28→16:25)
[2021-06-15] MEDS: LORAZEPAM 0.5 MG TABLET PO PRN ×2 (09:28→21:07)
[2021-06-15] MEDS: GABAPENTIN 100 MG CAPSULE PO SCH (09:28)
[2021-06-15] MEDS: BENZTROPINE MESYLATE (1 MG) 1 MG TABLET PO SCH ×2 (09:29→21:05)
[2021-06-15] MEDS: risperiDONE 1 MG TABLET PO SCH ×4 (09:29→21:06)
[2021-06-15] MEDS: FAMOTIDINE (20 MG) 20 MG TABLET PO SCH (09:29)
[2021-06-15] MEDS: ATORVASTATIN 40 MG TABLET PO SCH (09:29)
[2021-06-15] MEDS: MULTIVITAMINS,THERAGRAN 1 UDTAB TABLET PO SCH (09:29)
[2021-06-15] MEDS: GABAPENTIN 300 MG CAPSULE PO SCH ×2 (13:03→16:26)
[2021-06-15 16:00] VITALS: BP 104/69
[2021-06-15 16:20] VITALS: BP 104/69
[2021-06-15 20:06] VITALS: BP 101/75
[2021-06-15] MEDS: DONEPEZIL 5 MG TABLET PO SCH (21:06)
[2021-06-15] MEDS: SENNOSIDES 8.6 MG TABLET PO SCH (21:11)
--- NOTE | 2021-06-15 21:19 | NUR ---
Pt anxious and agitated. Constantly yelling out loud. Ativan 0.5 mg po prn given as ordered. All meds crushed and given po with apple sauce. Tolerated well. Aspiration precaution observed at all times. Will continue to monitor.
--- NOTE | 2021-06-15 22:20 | NUR ---
Post 1 hr ativan effective. Pt asleep in bed easy to arouse. Frequent visual check done for safety. Will continue to monitor.
[2021-06-16 08:00] VITALS: BP 116/92
[2021-06-16] MEDS: BENZTROPINE MESYLATE (1 MG) 1 MG TABLET PO SCH ×2 (08:09→21:55)
[2021-06-16] MEDS: MEMANTINE HCL 5 MG TABLET PO SCH ×2 (08:09→21:54)
[2021-06-16] MEDS: FAMOTIDINE (20 MG) 20 MG TABLET PO SCH (08:10)
[2021-06-16] MEDS: DOCUSATE SODIUM 100 MG CAPSULE PO SCH ×2 (08:10→17:26)
[2021-06-16] MEDS: ATORVASTATIN 40 MG TABLET PO SCH (08:10)
[2021-06-16] MEDS: MULTIVITAMINS,THERAGRAN 1 UDTAB TABLET PO SCH (08:10)
[2021-06-16] MEDS: ASCORBIC ACID 500 MG TABLET PO SCH ×2 (08:10→17:26)
[2021-06-16] MEDS: GABAPENTIN 300 MG CAPSULE PO SCH ×3 (08:10→17:25)
[2021-06-16] MEDS: risperiDONE 1 MG TABLET PO SCH ×4 (08:11→21:54)
[2021-06-16 16:27] VITALS: BP 126/82
[2021-06-16 20:11] VITALS: BP 126/73
[2021-06-16] MEDS: DONEPEZIL 5 MG TABLET PO SCH (21:54)
[2021-06-16] MEDS: SENNOSIDES 8.6 MG TABLET PO SCH (21:54)
[2021-06-16] MEDS: LORAZEPAM 0.5 MG TABLET PO PRN (22:10)
[2021-06-17 08:00] VITALS: BP 137/84
[2021-06-17] MEDS: GABAPENTIN 300 MG CAPSULE PO SCH ×3 (09:26→16:39)
[2021-06-17] MEDS: MEMANTINE HCL 5 MG TABLET PO SCH ×2 (09:26→21:40)
[2021-06-17] MEDS: MULTIVITAMINS,THERAGRAN 1 UDTAB TABLET PO SCH (09:26)
[2021-06-17] MEDS: DOCUSATE SODIUM 100 MG CAPSULE PO SCH ×2 (09:26→16:40)
[2021-06-17] MEDS: FAMOTIDINE (20 MG) 20 MG TABLET PO SCH (09:26)
[2021-06-17] MEDS: ATORVASTATIN 40 MG TABLET PO SCH (09:26)
[2021-06-17] MEDS: ASCORBIC ACID 500 MG TABLET PO SCH ×2 (09:26→16:40)
[2021-06-17] MEDS: BENZTROPINE MESYLATE (1 MG) 1 MG TABLET PO SCH ×4 (09:27→21:40)
[2021-06-17] MEDS: risperiDONE 1 MG TABLET PO SCH ×3 (09:27→16:40)
[2021-06-17 16:00] VITALS: BP 122/88
[2021-06-17 20:00] VITALS: BP 138/90
[2021-06-17] MEDS: DONEPEZIL 5 MG TABLET PO SCH (21:40)
[2021-06-17] MEDS: SENNOSIDES 8.6 MG TABLET PO SCH (21:40)
[2021-06-17] MEDS ORDERED: risperiDONE 1 MG TABLET PO SCH (22:00)
[2021-06-18 08:00] VITALS: BP 113/61
--- NOTE | 2021-06-18 08:03 | NUR ---
SW Discharge Note: Patient will be discharged to long term facility [facility] [address], [place] [address]; ). Please arrange transportation at 1PM. Welder Production Line Gas spoke with Dorene mainspring former at [facility]; ([phone], who stated patient will be accepted today. Patient does not have any family to contact. Patient is alert and oriented x3 and is unable to plan for self-care. Patient denies any suicidal or homicidal ideations. Patient is aware and agreeable with discharge plans. Patient will continue to follow-up with (psychiatrist) Dr. Bnada [address], [place] [address]; ([phone]) and (director of business services) Dr. Villanueva [address] [facility] [address], [place] [address]; ([phone]). Patient presents with euthymic mood and congruent affect.
[2021-06-18] MEDS: risperiDONE 1 MG TABLET PO SCH ×2 (08:49→12:17)
[2021-06-18] MEDS: BENZTROPINE MESYLATE (1 MG) 1 MG TABLET PO SCH ×2 (08:49→12:17)
[2021-06-18] MEDS: FAMOTIDINE (20 MG) 20 MG TABLET PO SCH (09:03)
[2021-06-18] MEDS: MULTIVITAMINS,THERAGRAN 1 UDTAB TABLET PO SCH (09:03)
[2021-06-18] MEDS: ATORVASTATIN 40 MG TABLET PO SCH (09:04)
[2021-06-18] MEDS: DOCUSATE SODIUM 100 MG CAPSULE PO SCH (09:04)
[2021-06-18] MEDS: GABAPENTIN 300 MG CAPSULE PO SCH ×2 (09:04→12:17)
[2021-06-18] MEDS: MEMANTINE HCL 5 MG TABLET PO SCH (09:04)
[2021-06-18] MEDS: ASCORBIC ACID 500 MG TABLET PO SCH (09:04)
--- NOTE | 2021-06-18 10:03 | NUR ---
RN-CO: DR NORIEGA GAVE AN ORDER TO DISCONTINUE HOLD nd discharge pt to snf.
[2021-06-18] MEDS: LORAZEPAM 0.5 MG TABLET PO PRN (10:09)
--- NOTE | 2021-06-18 10:12 | NUR ---
RN-NOTES NOTED PATIENT SCREAMING AND YELLING IN THE DAY ROOM,REDIRECTED AND ATIVAN 0.5MG P.O GIVEN PRN ORDER. WILL CONT. MONITORING FOR SAFETY AND BEHAVIOR.
--- NOTE | 2021-06-18 11:15 | NUR ---
RN-NOTES PATIENT IN THE DAY ROOM,AWAKE,ALERT CALM,NO ACUTE DISTRESS NOTED.
--- NOTE | 2021-06-18 14:28 | NUR ---
RN-NOTES PATIENT HAD A DISCHARGE ORDER FROM DR. NORIEGA(PSYCHIATRIST) DR. VALENCIA ( BANQUET COOK) MEDICALLY CLEARED PATIENT FOR DISCHARGE.. PATIENT WAS DISCHARGED TO [facility]. REPORT WAS GIVEN TO JEM ( [facility] STAFF). PATIENT DID NOT VERBALIZE SI/HI,DENIES VISUAL/AUDITORY HALLUCINATIONS AT THE TIME OF DISCHARGE. PATIENT WAS ETHANOL OPERATOR BY AMBULANCE VIA GURNEY WITH TWO STAFF ASSIST. PATIENT LEFT THE UNIT IN STABLE CONDITION A/O X1 AMBULATORY STEADY GAIT WITH ALL BELONGINGS. NO FAMILY TO NOTIFY OF THE DISCHARGE.
== END 2021-06-18 14:28 | DRG 885 ==
LOC: ER 14:08 → GPS 18:55
PROVIDERS: ADMIT Psychiatry & Neurology Psychosomatic Medicine; ATTEND Registered Nurse
DX: F25.0 Schizoaffective disorder, bipolar type (principal); F29 Unspecified psychosis not due to a substance or known physiological condition; F41.9 Anxiety disorder, unspecified; Z20.822 Contact with and (suspected) exposure to COVID-19; E11.9 Type 2 diabetes mellitus without complications; E78.5 Hyperlipidemia, unspecified; G30.9 Alzheimer's disease, unspecified; F02.80 Dementia in other diseases classified elsewhere, unspecified severity, without behavioral disturbance, psychotic disturbance, mood disturbance, and anxiety; R53.1 Weakness; Z79.82 Long term (current) use of aspirin
CPT/HCPCS: 36415; 80048-TC; 80061-TC; 80076-TC; 84443-TC; 85025-TC; 87081-TC; 97116-TC; 97530-TC; C9803; G0480

== ENCOUNTER 2021-08-05 18:48 | Inpatient (IN) | payer MEDICARE, MEDICAID ==
[~2021-08-05] VITALS: Ht 170.2 cm; Wt 36.7 kg
[~2021-08-05 18:48] MED LIST changes: -ASPI-1169 PO; -RISP0.5T5 PO; +ROSU20TA2 PO; -ZINC1CAP3 PO
--- NOTE | 2021-08-05 19:00 | NUR ---
PT VIRI FROM [facility] C/O DESATURATION AT ROOM AIR 90%, GIVEN 5LPM VIA N/C SATTING AT 95%. PT A/OX2. CONNECTED PT TO POX AND MONITOR. SAFETY MEASURES IN PLACE
[2021-08-05] MEDS ORDERED: IV NS 0.9% 1,000 ML BAG IV ONE (19:30)
--- NOTE | 2021-08-05 19:35 | NUR ---
RAC #18G S/L; PATENT AND INTACT. ROLANDO PROGRAM HOST AT PT'S BEDSIDE AND COLLECTED BLOOD.
[2021-08-05] MEDS ORDERED: IV NS 0.9% 250 ML IV ONE (19:46)
[2021-08-05] MEDS ORDERED: IOHEXOL-350 100 ML VIAL IV ONE (19:46)
--- NOTE | 2021-08-05 19:52 | NUR ---
PT TO CT VIA [facility].
[2021-08-05 20:04] LABS: CALCIUM, SERUM 9.9 mg/dL (8.5-10.1); CARBON DIOXIDE 32 mmol/L (21-32); CHLORIDE 110 mmol/L (98-107); CREATININE 1.3 mg/dL (0.6-1.3); GLUCOSE 132 mg/dL (74-106); POTASSIUM 5.3 mmol/L (3.5-5.1); SODIUM SERUM 150 mmol/L (136-145); UREA NITROGEN, BLOOD 29 mg/dL (7-18)
[2021-08-05 20:06] LABS: BASOPHILS % (AUTO) 0.1 % (0.0-2.0); HEMATOCRIT 50 % (39-51); HEMOGLOBIN 16.4 g/dL (13.5-17.5); LYMPHOCYTES # (AUTO) 1.2 K/uL (0.8-4.8); LYMPHOCYTES % (AUTO) 8.7 % (20.0-44.0); MEAN CORPUSCULAR HGB CONC 33 g/dl (31.0-36.0); MEAN CORPUSCULAR VOLUME 100 fL (80-96); MONOCYTES # (AUTO) 0.7 K/uL (0.1-1.30); MONOCYTES % (AUTO) 4.9 % (2.0-12.0); NEUTROPHILS # (AUTO) 12.2 K/uL (1.8-8.9); NEUTROPHILS % (AUTO) 86.3 % (43.0-81.0); PLATELET COUNT (AUTO) 275 K/uL (150-450); RED BLOOD CELL COUNT(AUTO) 4.95 MIL/uL (4.5-6.0); WHITE BLOOD COUNT (AUTO) 14.2 K/uL (4.3-11.0)
--- NOTE | 2021-08-05 20:12 | NUR ---
LACTIC ACID 2.9; LAW GASCA AWARE
--- NOTE | 2021-08-05 20:32 | NUR ---
COVID ANTIGEN SWAB COLLECTED AND GIVEN TO LAB
[2021-08-05] MEDS ORDERED: ACETAMINOPHEN 325 MG TABLET PO PRN (22:00)
[2021-08-05] MEDS ORDERED: IV NS 0.9% 1,000 ML IV PRN ×2 (22:00→23:09)
--- NOTE | 2021-08-05 22:31 | NUR ---
PATHOLOGIST AT PT'S BEDSIDE
[2021-08-05 23:23] LABS: BILIRUBIN,DIRECT 0.4 mg/dL (0.0-0.2)
[2021-08-05] MEDS ORDERED: ENOXAPARIN SODIUM 40 MG/0.4 ML DISP.SYRIN SQ ONE (23:23)
[2021-08-05] MEDS ORDERED: ATORVASTATIN 10 MG TABLET ONE (23:23)
[2021-08-05] MEDS ORDERED: DONEPEZIL 5 MG TABLET ONE (23:24)
[2021-08-05] MEDS: ATORVASTATIN 10 MG TABLET PO SCH (23:30)
[2021-08-05] MEDS: DONEPEZIL 5 MG TABLET PO SCH (23:30)
[2021-08-05] MEDS: ENOXAPARIN SODIUM 40 MG/0.4 ML DISP.SYRIN SQ SCH (23:30)
[2021-08-05] MEDS: SENNOSIDES 8.6 MG TABLET PO SCH (23:30)
--- NOTE | 2021-08-06 00:56 | NUR ---
PT ON O2 1LPM VIA N/C TOLERATING WELL AT 96%. RAC #18G S/L; NS @100ML/HR. PT CONNECTED TO MONITOR AND POX. ENDORSED ROBBI TO CARLITOS QUINTANILLA
--- NOTE | 2021-08-06 01:48 | NUR ---
REPORT GIVEN TO MADELINE BANEGAS FOR ROBBI PT WILL GO TO ROOM 323-2
[2021-08-06 02:14] LABS: CALCIUM, SERUM 9.2 mg/dL (8.5-10.1); CREATININE 1.1 mg/dL (0.6-1.3); POTASSIUM 5.9 mmol/L (3.5-5.1)
--- NOTE | 2021-08-06 02:19 | NUR ---
TRANSFER PT TO ROOM 323-2 VIA ACLS PROTOCOL, RECEIVING NURSE AT BED SIDE NO SIGN OF RESPIRATORY DISTRESS NOTED NO SOB HR 108
[2021-08-06 02:30] VITALS: BP 148/87
--- NOTE | 2021-08-06 02:30 | NUR ---
MANAGER LABOR DELIVERYRAINBOW TROUT FARM MANAGER NOTES RECEIVED FROM ER BY THIS 66 Y.O. MALE,ALERT,ORIENTED X1,CONFUSED,WITH DIAGNOSIS OF ACUTE DEHYDRATION,CAME [facility].PRESENTING PROBLEM,DESATURATION 90% ON ROOM AIRE.WITH SALINE LOCK RIGHT AC INTACT AND PATENT,NS AT 100ML/HR RATE IN PROGRESS,NOTED SLIGHT REDNESS WITH SCRATCHES ON LEFT EAR,SLIGHT REDNESS ON SACRAL AREA,CLEANSE WITH SOAP AND WATER AND APPLIED SKIN BARRIER.FALL PRECAUTION OBSERVED.BED ON LOWEST POSITION AND LOCKED.BED ALARM TRIGGERED.CALL LIGHT IN REACH,NEEDS ANTICIPATED.
[2021-08-06 04:00] VITALS: BP 135/91
--- NOTE | 2021-08-06 06:35 | NUR ---
MEDICAL CENTER REPRESENTATIVE NOTES IN BED CALM AND QUIET,IVF INFUSING,NO FALL,NO INJURY,IN NO ACUTE DISTRESS.
--- NOTE | 2021-08-06 08:00 | NUR ---
RN OPENING NOTE PT IN BED COMFORTABLY. NO DISTRESS NOTED. NO PAIN NOTED. SAFETY MEASURES IN PLACE. SIDE RAILS RAISED. BED LOWERED. CALL LIGHT WITHIN REACH. WILL CONTINUE TO MONITOR.
[2021-08-06] MEDS: DOCUSATE SODIUM 100 MG CAPSULE PO SCH ×2 (08:09→17:47)
[2021-08-06] MEDS: ASCORBIC ACID 500 MG TABLET GT SCH (08:09)
[2021-08-06] MEDS: FAMOTIDINE (20 MG) 20 MG TABLET PO SCH (08:09)
[2021-08-06] MEDS: MULTIVITAMIN/LUTEIN/MINERALS 1 TAB PO SCH (08:09)
[2021-08-06] MEDS: MEMANTINE HCL 5 MG TABLET PO SCH (08:09)
[2021-08-06 09:30] LABS: CALCIUM, SERUM 9.1 mg/dL (8.5-10.1); MAGNESIUM 2.9 mg/dL (1.8-2.4); PHOSPHORUS 2.3 mg/dL (2.5-4.9); POTASSIUM 3.7 mmol/L (3.5-5.1)
[2021-08-06 09:47] LABS: BASOPHILS % (AUTO) 0.2 % (0.0-2.0); EOSINOPHILS % (AUTO) 0.1 % (0.0-6.0); HEMATOCRIT 46 % (39-51); LYMPHOCYTES # (AUTO) 1.1 K/uL (0.8-4.8); LYMPHOCYTES % (AUTO) 11.2 % (20.0-44.0); MEAN CORPUSCULAR HGB CONC 33 g/dl (31.0-36.0); MEAN CORPUSCULAR VOLUME 100 fL (80-96); MONOCYTES # (AUTO) 0.3 K/uL (0.1-1.30); MONOCYTES % (AUTO) 3.4 % (2.0-12.0); NEUTROPHILS # (AUTO) 8.7 K/uL (1.8-8.9); NEUTROPHILS % (AUTO) 85.1 % (43.0-81.0); PLATELET COUNT (AUTO) 235 K/uL (150-450); RED BLOOD CELL COUNT(AUTO) 4.58 MIL/uL (4.5-6.0); WHITE BLOOD COUNT (AUTO) 10.2 K/uL (4.3-11.0)
--- NOTE | 2021-08-06 11:43 | NUR ---
Called [facility] and vaccination verified
[2021-08-06] MEDS: ENSURE ENLIVE 237 ML LIQUID (VANILLA) PO SCH ×2 (13:00→17:47)
[2021-08-06] MEDS ORDERED: OLANZAPINE 10 MG VIAL IM PRN (14:30)
[2021-08-06] MEDS ORDERED: K PHOS NEUTRAL 250 MG TABLET PO ONE (15:30)
[2021-08-06] MEDS: BENZTROPINE MESYLATE (1 MG) 1 MG TABLET PO SCH (17:47)
[2021-08-06] MEDS: risperiDONE 1 MG TABLET PO SCH ×2 (17:47→21:42)
[2021-08-06] MEDS: IV 1/2NS 1000 ML 1,000 ML IV SCH (17:47)
--- NOTE | 2021-08-06 19:45 | NUR ---
ADULT EDUCATION TEACHER OPENING NOTE PATIENT RECEIVED AWAKE IN BED. PATIENT APPEARS CONFUSED D/T ADVANCED DEMENTIA BUT IS COOPERATIVE. A/OX1 (PERSON). NO S/S OF DISTRESS, BREATHING SYMMETRICAL. AIR SURVEILLANCE OPERATOR REPORTS SR 94. SAFETY MEASURES IN PLACE: BED AT LOWEST POSITION, RAILS UP X2, CALL ORTIZ WITHIN REACH. WILL CONTINUE TO MONITOR PATIENT.
--- NOTE | 2021-08-06 19:46 | NUR ---
RN CLOSING NOTE PT IN BED COMFORTABLY. NO DISTRESS NOTED. NO PAIN NOTED. SAFETY MEASURES IN PLACE. SIDE RAILS RAISED. BED LOWERED. CALL LIGHT WITHIN REACH. WILL CONTINUE TO MONITOR.
[2021-08-06 20:45] VITALS: BP 151/94
[2021-08-06] MEDS: ENOXAPARIN SODIUM 40 MG/0.4 ML DISP.SYRIN SQ SCH (21:00)
[2021-08-06] MEDS: DONEPEZIL 5 MG TABLET PO SCH (21:41)
[2021-08-06] MEDS: SENNOSIDES 8.6 MG TABLET PO SCH (21:41)
[2021-08-06] MEDS: ATORVASTATIN 10 MG TABLET PO SCH (21:42)
[2021-08-07 00:29] VITALS: BP 120/88
[2021-08-07 04:24] VITALS: BP 121/92
--- NOTE | 2021-08-07 06:24 | NUR ---
TELE CLOSING NOTE PATIENT AWAKE IN BED. A/OX1. NO S/S OF DISTRESS; BREATHING SYMMETRICAL. SUPERVISOR FILES REPORTS SR 94. SAFETY MEASURES IN PLACE: BED AT LOWEST POSITION, RAILS UP X2, CALL ORTIZ WITHIN REACH. WILL ENDORSE TO NEXT SHIFT FOR ROBBI.
[2021-08-07] MEDS: IV 1/2NS 1000 ML 1,000 ML IV SCH (06:26)
[2021-08-07 07:26] LABS: BASOPHILS % (AUTO) 0.3 % (0.0-2.0); EOSINOPHILS % (AUTO) 0.7 % (0.0-6.0); HEMATOCRIT 42 % (39-51); HEMOGLOBIN 14.2 g/dL (13.5-17.5); LYMPHOCYTES # (AUTO) 1.5 K/uL (0.8-4.8); LYMPHOCYTES % (AUTO) 19.1 % (20.0-44.0); MEAN CORPUSCULAR HGB CONC 34 g/dl (31.0-36.0); MEAN CORPUSCULAR VOLUME 100 fL (80-96); MONOCYTES # (AUTO) 0.4 K/uL (0.1-1.30); MONOCYTES % (AUTO) 5.2 % (2.0-12.0); NEUTROPHILS # (AUTO) 5.7 K/uL (1.8-8.9); NEUTROPHILS % (AUTO) 74.7 % (43.0-81.0); PLATELET COUNT (AUTO) 213 K/uL (150-450); RED BLOOD CELL COUNT(AUTO) 4.21 MIL/uL (4.5-6.0); WHITE BLOOD COUNT (AUTO) 7.6 K/uL (4.3-11.0)
--- NOTE | 2021-08-07 07:38 | NUR ---
RN OPENING NOTES Patient seen comfortably lying in bed, breathing even and unlabored, no SOB, no apparent distress noted, denies any pain or discomfort at this time, no grimacing. Call light left within reach, safety precautions in place, brakes locked, side rails up X 2, will monitor closely for any changes.
[2021-08-07 07:58] LABS: CALCIUM, SERUM 8.7 mg/dL (8.5-10.1); CREATININE 0.8 mg/dL (0.6-1.3); PHOSPHORUS 2.6 mg/dL (2.5-4.9); POTASSIUM 3.6 mmol/L (3.5-5.1)
[2021-08-07 08:00] VITALS: BP 142/93
[2021-08-07] MEDS: MULTIVITAMIN/LUTEIN/MINERALS 1 TAB PO SCH (08:08)
[2021-08-07] MEDS: risperiDONE 1 MG TABLET PO SCH ×4 (08:08→21:39)
[2021-08-07] MEDS: ENSURE ENLIVE 237 ML LIQUID (VANILLA) PO SCH ×3 (08:08→17:07)
[2021-08-07] MEDS: MEMANTINE HCL 5 MG TABLET PO SCH (08:08)
[2021-08-07] MEDS: FAMOTIDINE (20 MG) 20 MG TABLET PO SCH (08:08)
[2021-08-07] MEDS: DOCUSATE SODIUM 100 MG CAPSULE PO SCH ×2 (08:08→16:41)
[2021-08-07] MEDS: ASCORBIC ACID 500 MG TABLET GT SCH (08:08)
[2021-08-07] MEDS: BENZTROPINE MESYLATE (1 MG) 1 MG TABLET PO SCH ×2 (08:08→16:41)
[2021-08-07] MEDS: IV D5W 1,000 ML IV PRN (11:13)
[2021-08-07 16:00] VITALS: BP 125/80
--- NOTE | 2021-08-07 18:16 | NUR ---
RN CLOSING NOTES Patient lying in bed, no SOB, respirations even and unlabored, no apparent distress noted, denies any pain or discomfort, no dizziness, no palpitations, no chest pain. All due medications given per MD order, tolerating well. All needs attended, kept clean and dry, call light left within reach, safety precautions in place, frequent visual check rendered, brakes locked, side rails up X 2, will endorse to next shift for continuity of care.
[2021-08-07 20:00] VITALS: BP 90/58
--- NOTE | 2021-08-07 20:20 | NUR ---
TELE OPENING RN NOTE PATIENT AWAKE IN BED. A/OX1. NO S/S OF DISTRESS, BREATHING SYMMETRICAL. TELE SR 86. SAFETY MEASURES IN PLACE: BED AT LOWEST POSITION, RAILS UP X2, CALL ORTIZ WITHIN REACH. WILL CONTINUE TO MONITOR.
[2021-08-07] MEDS: ENOXAPARIN SODIUM 40 MG/0.4 ML DISP.SYRIN SQ SCH (21:00)
--- NOTE | 2021-08-07 21:14 | NUR ---
HEALTH AID NOTE ATTEMPTED TO GET URINE SPECIMEN VIA IN AND OUT CATH BUT PATIENT HIGHLY UNCOOPERATIVE. NO URINE CAPTURED. WILL ATTEMPT AGAIN IN THE MORNING.
[2021-08-07] MEDS: ATORVASTATIN 10 MG TABLET PO SCH (21:38)
[2021-08-07] MEDS: SENNOSIDES 8.6 MG TABLET PO SCH (21:38)
[2021-08-07] MEDS: DONEPEZIL 5 MG TABLET PO SCH (21:38)
[2021-08-08] VITALS: BP 108/71
[2021-08-08 04:00] VITALS: BP 104/68
--- NOTE | 2021-08-08 06:06 | NUR ---
BASTING CLEANER CLOSING NOTE PATIENT IS ASLEEP IN BED. A/OX1. NO S/S OF DISTRESS; BREATHING SYMMETRICAL. TELE MONITOR SB 52. SAFETY MEASURES IN PLACE: BED AT LOWEST POSITION, RAILS UP X2, CALL ORTIZ WITHIN REACH. WILL ENDORSE TO NEXT SHIFT FOR ROBBI.
--- NOTE | 2021-08-08 07:19 | NUR ---
SEWER SYSTEM SUPERVISOR OPENING NOTES RECEIVED PT AWAKE IN BED IN ACUTE SIGNS OF DISTRESS. A/OX1. VERBALLY RESPONSIVE BUT CONFUSED, NO C/O PAIN AT THIS TIME. ON 02 VIA N/C AT 2LPM, TOLERATING WELL WITH NO SOB NOTED. CURRENT TELE READING SHOWS NSR, HR 77, NO S/S OF CARDIAC DISTRESS OBSERVED AT THIS TIME. IV ACCESS ON RAC G#18 INTACT WITH IVF OF D5W @ 75ML/HR INFUSING WELL, NO S/S OF INFILTRATION NOTED. SAFETY MEASURES IN PLACE: BED AT LOWEST LOCKED POSITION, SIDE-RAILS UP X2, BED ALARM ON AND CALL ORTIZ WITHIN REACH. WILL CONTINUE TO MONITOR PATIENT ACCORDINGLY.
[2021-08-08 08:00] VITALS: BP 103/60
[2021-08-08] MEDS: ENSURE ENLIVE 237 ML LIQUID (VANILLA) PO SCH ×3 (08:03→18:06)
[2021-08-08 08:09] LABS: BASOPHILS % (AUTO) 0.3 % (0.0-2.0); EOSINOPHILS % (AUTO) 1.1 % (0.0-6.0); HEMATOCRIT 36 % (39-51); HEMOGLOBIN 12.1 g/dL (13.5-17.5); LYMPHOCYTES % (AUTO) 16.9 % (20.0-44.0); MEAN CORPUSCULAR HGB CONC 34 g/dl (31.0-36.0); MEAN CORPUSCULAR VOLUME 98 fL (80-96); MONOCYTES # (AUTO) 0.3 K/uL (0.1-1.30); MONOCYTES % (AUTO) 5.1 % (2.0-12.0); NEUTROPHILS # (AUTO) 4.7 K/uL (1.8-8.9); NEUTROPHILS % (AUTO) 76.6 % (43.0-81.0); PLATELET COUNT (AUTO) 196 K/uL (150-450); RED BLOOD CELL COUNT(AUTO) 3.66 MIL/uL (4.5-6.0); WHITE BLOOD COUNT (AUTO) 6.2 K/uL (4.3-11.0)
[2021-08-08] MEDS: risperiDONE 1 MG TABLET PO SCH ×4 (08:14→21:04)
[2021-08-08] MEDS: ASCORBIC ACID 500 MG TABLET GT SCH (08:14)
[2021-08-08] MEDS: FAMOTIDINE (20 MG) 20 MG TABLET PO SCH (08:15)
[2021-08-08] MEDS: MEMANTINE HCL 5 MG TABLET PO SCH (08:15)
[2021-08-08] MEDS: DOCUSATE SODIUM 100 MG CAPSULE PO SCH ×2 (08:15→16:43)
[2021-08-08] MEDS: MULTIVITAMIN/LUTEIN/MINERALS 1 TAB PO SCH (08:15)
[2021-08-08] MEDS: BENZTROPINE MESYLATE (1 MG) 1 MG TABLET PO SCH ×2 (08:15→16:43)
[2021-08-08 08:45] LABS: CALCIUM, SERUM 8.1 mg/dL (8.5-10.1); CREATININE 0.7 mg/dL (0.6-1.3); POTASSIUM 3.1 mmol/L (3.5-5.1)
[2021-08-08] MEDS ORDERED: BENZ1TAB7 PO (10:49)
[2021-08-08] MEDS ORDERED: RISP1TAB7 PO ×2 (10:49)
[2021-08-08] MEDS: POTASSIUM CHLORIDE 20 MEQ TAB.PRT.SR PO SCH ×2 (11:09→12:03)
[2021-08-08 12:00] VITALS: BP 99/76
--- NOTE | 2021-08-08 12:22 | NUR ---
RN NOTES PT NOTED WITH LOW POTASSIUM 3.1 TODAY. ADMINISTERED K-DUR 20 MEQ X 2 DOSES ORDERED AND TOLERATED.
[2021-08-08 16:00] VITALS: BP 101/64
[2021-08-08] MEDS: IV D5W 1,000 ML IV PRN (18:33)
--- NOTE | 2021-08-08 18:49 | NUR ---
PROMOTIONS EXECUTIVE CLOSING NOTES PT IN BED AWAKE RESTING AT SEMI-DENTON'S POSITION AT THIS TIME. A/OX1 TO NAME ONLY. ABLE TO COMMUNICATE VERBALLY BUT CONFUSED AND FORGETFUL. FOLLOWS SIMPLE COMMANDS. ON 02 VIA N/C AT 2LPM, TOLERATING WELL WITH NO SOB NOTED. CURRENT TELE READING SHOWS NSR, HR ON THE 70'S, NO C/O OF CARDIAC DISTRESS VOICED DURING SHIFT. IV ACCESS ON RAC G#18 INTACT WITH IVF OF D5W @ 75ML/HR INFUSING WELL, NO S/S OF INFILTRATION NOTED. ALL DUE NURSING CARE RENDERED AND MAINTAINED. SAFETY MEASURES IN PLACED: BED AT LOWEST LOCKED POSITION, SIDE-RAILS UP X2, BED ALARM ON AND CALL ORTIZ WITHIN REACH. WILL ENDORSE ROBBI TO REFINERY OPERATOR ASSISTANT NURSE.
--- NOTE | 2021-08-08 19:45 | NUR ---
ASPHALT LAYER NOTES ON BED A/O X2-3,ABLE TO ANSWER SIMPLE QUESTION,ERNESTO AND QUIET,BED ON LOW POSITION AND LOCKED,IVF D5W INFUSING WELL ON RIGHT AC SALINE LOCK.FALL RISK,BED ALARM TRIGGERED.,BED ON LOWEST POSITION AND LOCKED,CALL LIGHT IN REACH,NEEDS ANTICIPATED.
[2021-08-08 20:00] VITALS: BP 92/65
[2021-08-08] MEDS: ENOXAPARIN SODIUM 40 MG/0.4 ML DISP.SYRIN SQ SCH (21:00)
[2021-08-08] MEDS: DONEPEZIL 5 MG TABLET PO SCH (21:04)
[2021-08-08] MEDS: ATORVASTATIN 10 MG TABLET PO SCH (21:15)
[2021-08-08] MEDS: SENNOSIDES 8.6 MG TABLET PO SCH (21:15)
[2021-08-09] VITALS: BP 152/78
[2021-08-09] MEDS: ONDANSETRON HCL/PF 4 MG/2 ML VIAL IVP PRN ×2 (00:39→10:35)
--- NOTE | 2021-08-09 00:39 | NUR ---
MAILROOM ASSISTANT NOTES VOMITED GREENISH VOMITUS,SMALL AMOUNT,MEDICATED WITH ZOFRAN 4MG IV ORDERED.
--- NOTE | 2021-08-09 06:57 | NUR ---
SHAPING MACHINE OPERATOR NOTES ON BED SLEEPING,VOMITING SUBSIDED,D/C PLAN BACK TO SNF.NO DISTRESS.
--- NOTE | 2021-08-09 07:55 | NUR ---
WINDOW SYSTEMS ADMINISTRATOR OPENING NOTES RECEIVED PT IN BED AWAKE RESTING AT SEMI-DENTON'S POSITION AT THIS TIME. A/OX1 TO NAME ONLY. FOLLOWS SIMPLE COMMANDS. ON 02 VIA N/C AT 2LPM, TOLERATING WELL WITH NO SOB NOTED. CURRENT TELE READING SHOWS NSR, HR ON THE 70'S. IV ACCESS ON RAC G#18 INTACT WITH IVF OF D5W @ 75ML/HR INFUSING WELL, NO S/S OF INFILTRATION NOTED. SAFETY MEASURES IN PLACED: BED AT LOWEST LOCKED POSITION, SIDE-RAILS UP X2, BED ALARM ON AND CALL ORTIZ WITHIN REACH. WILL CONTINUE TO MONITOR.
[2021-08-09] MEDS: ENSURE ENLIVE 237 ML LIQUID (VANILLA) PO SCH ×4 (08:00→17:39)
[2021-08-09 08:17] LABS: CREATININE 0.7 mg/dL (0.6-1.3); POTASSIUM 4.3 mmol/L (3.5-5.1)
[2021-08-09 08:36] VITALS: BP 116/70
[2021-08-09] MEDS: risperiDONE 1 MG TABLET PO SCH ×5 (09:00→21:02)
[2021-08-09] MEDS: DOCUSATE SODIUM 100 MG CAPSULE PO SCH ×3 (09:00→16:46)
[2021-08-09] MEDS: BENZTROPINE MESYLATE (1 MG) 1 MG TABLET PO SCH ×3 (09:00→16:46)
[2021-08-09] MEDS: MULTIVITAMIN/LUTEIN/MINERALS 1 TAB PO SCH (10:12)
[2021-08-09] MEDS: ASCORBIC ACID 500 MG TABLET GT SCH (10:13)
[2021-08-09] MEDS: MEMANTINE HCL 5 MG TABLET PO SCH (10:13)
[2021-08-09] MEDS: FAMOTIDINE (20 MG) 20 MG TABLET PO SCH (10:13)
--- NOTE | 2021-08-09 10:38 | NUR ---
TELE/RN NOTES- VOMITED PATIENT VOMITTED GREENISH SUBSTANCE, WAS NOT ABLE TO TAKE CRUSHED MEDICINES. ZOFRAN VIA IV GIVEN. WILL MONITOR PATIENT. IV HYDRATION IS CURRENTLY ONGOING.
[2021-08-09 13:53] VITALS: BP 110/66
[2021-08-09 15:57] VITALS: BP 123/82
--- NOTE | 2021-08-09 19:11 | NUR ---
SHOVELER CLOSING NOTES PT IN BED AWAKE RESTING AT SEMI-DENTON'S POSITION AT THIS TIME. A/OX1 TO NAME ONLY. FOLLOWS SIMPLE COMMANDS. ON 02 VIA N/C AT 2LPM, TOLERATING WELL WITH NO SOB NOTED. PATIENT TOOK OUT TELEMONITOR AND REFUSED FOR RN TO PUT IT BACK ON. IV ACCESS ON RAC G#18 INTACT WITH IVF OF D5W @ 75ML/HR INFUSING WELL, NO S/S OF INFILTRATION NOTED. ALL NEEDS MET. KEPT PATIENT COMFORTABLE. SAFETY MEASURES IN PLACED: BED AT LOWEST LOCKED POSITION, SIDE-RAILS UP X2, BED ALARM ON AND CALL ORTIZ WITHIN REACH. WILL ENDORSE TO THE NEXT SHIFT FOR ROBBI.
--- NOTE | 2021-08-09 19:40 | NUR ---
ROUTE INSPECTOR NOTES RECEIVED LAYING COMFORTABLY ON BED.A/O X1-2.ABLE TO ANSWER SIMPLE QUESTION,TELE MONITOR ON STANDBY,PATIENT REFUSED TO HAVE IT ON,SALINE LOCK RIGHT AC INTACT AND PATENT.FALL PRECAUTION OBSERVED,BED ALARM TRIGGERED,BED ON LOWEST POSITION AND LOCKED,CALL LIGHT IN REACH,NEEDS ANTICIPATED.
[2021-08-09 20:00] VITALS: BP 99/66
[2021-08-09] MEDS: ENOXAPARIN SODIUM 40 MG/0.4 ML DISP.SYRIN SQ SCH (21:00)
--- NOTE | 2021-08-09 21:00 | NUR ---
ICE SCRAPER NOTES KNOWN ALLERGY TO LOVENOX,DOSE HELD
[2021-08-09] MEDS: SENNOSIDES 8.6 MG TABLET PO SCH (22:03)
[2021-08-09] MEDS: DONEPEZIL 5 MG TABLET PO SCH (22:03)
[2021-08-09] MEDS: ATORVASTATIN 10 MG TABLET PO SCH (22:05)
[2021-08-10] VITALS: BP 112/68
[2021-08-10 04:00] VITALS: BP 119/72
--- NOTE | 2021-08-10 06:46 | NUR ---
CIGAR BINDER NOTES STILL ON STANDBY TELE MONITOR,SLEEP WELL AT NIGHT,NO FALL,NO INJURY,CASE MANAGEMENT FOR PLACEMENT.
--- NOTE | 2021-08-10 07:17 | NUR ---
GEOPHYSICAL PROSPECTING SURVEYOR OPENING NOTES RECEIVED PT IN BED AWAKE RESTING AT SEMI-DENTON'S POSITION AT THIS TIME. A/OX1 TO NAME ONLY. FOLLOWS SIMPLE COMMANDS. ON 02 VIA N/C AT 2LPM, TOLERATING WELL WITH NO SOB NOTED. PATIENT REFUSED TO KEEP TELEMONITOR MD AIDAN AWARE. WITH IV ACCESS ON RAC G#18 PATENT AND INTACT. SAFETY MEASURES IN PLACED: BED AT LOWEST LOCKED POSITION, SIDE-RAILS UP X2, BED ALARM ON AND CALL ORTIZ WITHIN REACH. WILL CONTINUE TO MONITOR.
[2021-08-10 08:00] VITALS: BP 107/67
[2021-08-10 09:00] VITALS: BP 90/56
[2021-08-10] MEDS: DOCUSATE SODIUM 100 MG CAPSULE PO SCH (09:14)
[2021-08-10] MEDS: ASCORBIC ACID 500 MG TABLET GT SCH (09:14)
[2021-08-10] MEDS: MEMANTINE HCL 5 MG TABLET PO SCH (09:14)
[2021-08-10] MEDS: FAMOTIDINE (20 MG) 20 MG TABLET PO SCH (09:15)
[2021-08-10] MEDS: MULTIVITAMIN/LUTEIN/MINERALS 1 TAB PO SCH (09:15)
[2021-08-10] MEDS: ENSURE ENLIVE 237 ML LIQUID (VANILLA) PO SCH ×2 (09:15→12:30)
[2021-08-10] MEDS: risperiDONE 1 MG TABLET PO SCH ×2 (09:15→12:30)
[2021-08-10] MEDS: BENZTROPINE MESYLATE (1 MG) 1 MG TABLET PO SCH (09:16)
--- NOTE | 2021-08-10 12:10 | NUR ---
TOOL ROOM SUPERVISOR NOTE PATIENT STILL FOR DISCHARGE ORDERED. AWAITING TRANSPORTATION. WILL CONTINUE TO MONITOR PATIENT.
--- NOTE | 2021-08-10 16:20 | NUR ---
MS RN NOTE PATIENT FOR DISCHARGE ORDERED. PATIENT PICKED UP BY 2 EMT PERSONNEL AND TRANSPORTED VIA GURNEY. PATIENT'S IV ACCESS REMOVED AND COVERED WITH DRY DRESSING. TOLERATED WELL. PATIENT. PATIENT REPORT AND DISCHARGE INSTRUCTIONS GIVEN TO [facility] NURSE. PATIENT LEFT [facility] AROUND 1615. IN STABLE CONDITION. ENDORSED ACCORDINGLY.
== END 2021-08-10 16:15 | DRG 189 ==
LOC: ER 18:58 → TRANSITION 22:48 → TELE 08-06 01:23
PROVIDERS: ADMIT Nurse Practitioner Acute Care; ATTEND Internal Medicine
DX: J96.01 Acute respiratory failure with hypoxia (principal); G93.41 Metabolic encephalopathy; E87.0 Hyperosmolality and hypernatremia; E87.2 Acidosis; N17.9 Acute kidney failure, unspecified; E78.5 Hyperlipidemia, unspecified; E86.0 Dehydration; E87.5 Hyperkalemia; G30.9 Alzheimer's disease, unspecified; F02.80 Dementia in other diseases classified elsewhere, unspecified severity, without behavioral disturbance, psychotic disturbance, mood disturbance, and anxiety; F25.0 Schizoaffective disorder, bipolar type; Z20.822 Contact with and (suspected) exposure to COVID-19; E78.00 Pure hypercholesterolemia, unspecified; E11.9 Type 2 diabetes mellitus without complications; Z79.899 Other long term (current) drug therapy; Z88.5 Allergy status to narcotic agent; Z88.8 Allergy status to other drugs, medicaments and biological substances; Z86.73 Personal history of transient ischemic attack (TIA), and cerebral infarction without residual deficits
CPT/HCPCS: 36415; 71045-TC; 80048-TC; 80061-TC; 82247-TC; 82248-TC; 83605-TC; 83735-TC; 83880; 84100-TC; 84484-TC; 85025-TC; 85730-TC; 87081-TC; 92526; 92611-TC; 97116-TC; 97530-TC; C9803; G0378; J1650; J2405; J3490; J7030; J7050; J7070; Q9967

== ENCOUNTER 2022-05-17 07:46 | Inpatient (IN) | payer MEDICARE, OTHER ==
[~2022-05-17] VITALS: Ht 165.1 cm; Wt 39.9 kg
[~2022-05-17 07:46] MED LIST changes: +BENZ1TAB7 PO; +RISP1TAB7 PO
[2022-05-17] MEDS ORDERED: VANCOMYCIN 1 GM in IV D5W 250 ML IV ONE (08:00)
[2022-05-17] MEDS ORDERED: PIPERACILLIN /TAZOBACTAM 3.375 G in IV D5W 50 ML IV ONE (08:00)
--- NOTE | 2022-05-17 08:25 | NUR ---
MOVE SHEET SUBMITTED.
--- NOTE | 2022-05-17 08:29 | NUR ---
IV LINE ESTABLISHED ON R HAND #20, BLOOD DRAWN AND SENT TO LAB
[2022-05-17 08:30] LABS: BASOPHILS % (AUTO) 0.1 % (0.0-2.0); HEMATOCRIT 45 % (39-51); HEMOGLOBIN 14.9 g/dL (13.5-17.5); LYMPHOCYTES # (AUTO) 1.2 K/uL (0.8-4.8); LYMPHOCYTES % (AUTO) 8.1 % (20.0-44.0); MEAN CORPUSCULAR HGB CONC 33 g/dl (31.0-36.0); MEAN CORPUSCULAR VOLUME 96 fL (80-96); MONOCYTES # (AUTO) 0.5 K/uL (0.1-1.30); MONOCYTES % (AUTO) 3.7 % (2.0-12.0); NEUTROPHILS # (AUTO) 12.9 K/uL (1.8-8.9); NEUTROPHILS % (AUTO) 88.1 % (43.0-81.0); PLATELET COUNT (AUTO) 372 K/uL (150-450); RED BLOOD CELL COUNT(AUTO) 4.64 MIL/uL (4.5-6.0); WHITE BLOOD COUNT (AUTO) 14.6 K/uL (4.3-11.0)
[2022-05-17] MEDS ORDERED: IV NS 0.9% 1,000 ML BAG IV ONE (08:30)
--- NOTE | 2022-05-17 08:30 | NUR ---
MOBILE SECURITY ARCHITECT AT BEDSIDE FOR XRAY
[2022-05-17 08:42] LABS: CALCIUM, SERUM 9.3 mg/dL (8.5-10.1); CARBON DIOXIDE 27 mmol/L (21-32); CHLORIDE 104 mmol/L (98-107); CREATININE 0.9 mg/dL (0.6-1.3); GLUCOSE 121 mg/dL (74-106); POTASSIUM 4.1 mmol/L (3.5-5.1); SODIUM SERUM 136 mmol/L (136-145); UREA NITROGEN, BLOOD 21 mg/dL (7-18)
--- NOTE | 2022-05-17 08:44 | NUR ---
URINE SAMPLE COLLECTED SENT TO LAB.
[2022-05-17 08:48] LABS: ALANINE AMINOTRANSFERASE 21 U/L (12-78); ALBUMIN 3.1 g/dL (3.4-5.0); ALKALINE PHOSPHATASE 180 U/L (46-116); ASPARTATE AMINOTRANSFERASE 20 U/L (15-37); BILIRUBIN,DIRECT 0.2 mg/dL (0.0-0.2); BILIRUBIN,TOTAL 1.3 mg/dL (0.2-1.0); TOTAL PROTEIN, SERUM 7.9 g/dL (6.4-8.2)
--- NOTE | 2022-05-17 08:51 | NUR ---
RAPID COVID SWAB COLLECTED AND SENT TO LAB
[2022-05-17] MEDS ORDERED: LITH300T3 PO (09:15)
[2022-05-17] MEDS ORDERED: BENZ0.5T43 GT (09:15)
[2022-05-17] MEDS ORDERED: OLAN5TAB3 PO (09:15)
[2022-05-17] MEDS ORDERED: LORA-259 PO (09:15)
[2022-05-17] MEDS ORDERED: MAG30ORA PO (09:15)
[2022-05-17] MEDS ORDERED: ATOR10TA GT (09:15)
[2022-05-17] MEDS ORDERED: OMEG1CAP55 PO (09:15)
[2022-05-17] MEDS ORDERED: RISP0.2515 PO (09:15)
[2022-05-17] MEDS ORDERED: MEGE40TA5 PO (09:15)
[2022-05-17] MEDS ORDERED: GUAI100S11 PO (09:15)
[2022-05-17 09:16] LABS: BILIRUBIN,URINE SMALL (NEGATIVE); COLOR,URINE YELLOW (YELLOW); LEUKOCYTE ESTERASE ,URINE NEGATIVE (NEGATIVE); NITRITE, URINE NEGATIVE (NEGATIVE); PH,URINE 5.5 (5.0-8.0); PROTEIN,URINE NEGATIVE (NEGATIVE); UGLUCOSE NEGATIVE (NEGATIVE)
--- NOTE | 2022-05-17 09:18 | NUR ---
COVID PCR SWAB OBTAINED AND SENT TO LAB
[2022-05-17 09:29] LABS: BACTERIA,URINE Rare /HPF (None Seen); RBC,URINE 0-2 /HPF (0-2); SQUAMOUS EPITHELIAL CELL,UR Few /HPF (None Seen)
[2022-05-17] MEDS ORDERED: ONDANSETRON HCL/PF 4 MG/2 ML VIAL IVP PRN (11:00)
[2022-05-17] MEDS ORDERED: MORPHINE SULFATE INJ 2 MG/ML DISP.SYRIN IV PRN (11:00)
[2022-05-17] MEDS ORDERED: ACETAMINOPHEN 650 MG/SUPP.RECT RC PRN (11:00)
[2022-05-17] MEDS ORDERED: Z GUARD REMEDY 4 OZ OINT TP PRN (11:00)
[2022-05-17] MEDS ORDERED: DEXTROSE 50%-WATER 50 ML DISP.SYRIN IV PRN (11:00)
[2022-05-17] MEDS: BLOOD SUGAR DIAGNOSTIC 1 EACH STRIP IN SCH ×2 (12:00→17:52)
[2022-05-17] MEDS: CEFEPIME 2 GM in IV D5W 100 ML IV SCH (13:00)
--- NOTE | 2022-05-17 14:35 | NUR ---
REPORT GIVEN TO TIFFANY RN ROOM 112 FOR ROBBI
[2022-05-17 16:11] VITALS: BP 122/79
--- NOTE | 2022-05-17 16:11 | NUR ---
CONCRETE PLANT LABORERBIAS MACHINE OPERATOR NOTES RECEIVED FROM ER, ORIENTED X1,CONFUSED,WITH DIAGNOSIS OF SEPSIS BY DR MARSHALL, O2 3L NASAL CANULA O2 SAT AT 100%. AFEBRILE. SR HR 92 ON MONITOR. NO SIGNS OF PAIN, NO GRIMACINGS, IV ACCESS ON RIGHT HAND G 20 FLUSHES WELL, SITE CLEAR. NPO FOR NOW. NO SKIN ISSUES, NEEDS ASSIST IN TURNING AND REPOSITIONING. FALL PRECAUTION OBSERVED.BED ON LOWEST POSITION AND LOCKED.BED ALARM TRIGGERED.CALL LIGHT IN REACH,NEEDS ANTICIPATED. WILL CONTINUE TO MONITOR
[2022-05-17] MEDS: IV NS 0.9% 1,000 ML IV PRN (17:27)
--- NOTE | 2022-05-17 18:46 | NUR ---
IMAGE ARCHIVIST NOTES PATIENT RESTING. CLEAN AND DRY. NOT GERA [place] DISTRESS. IVF INFUSING WELL NS 75 ML/HR TO RIGHT HAND. ALL NEEDS ANTICIPATED AND MET AT THIS TIME. SAFETY PRECAUTIONS IN PLACE. CALL LIGHT WITHIN REACH. WILL ENDORSE TO NEXT SHIFT FOR ROBBI.
--- NOTE | 2022-05-17 19:30 | NUR ---
RESOLUTE PROFESSIONAL OPENING NOTES RECEIVED PT ON BED,ALERT AND ORIENTED X1, WITH PERIODS OF CONFUSION, ON O2 AT 3L NASAL CANULA O2 SAT AT 100%. AFEBRILE. SR HR 92 ON MONITOR. NO SIGNS OF PAIN, NO GRIMACINGS, WITH IV ACCESS ON RIGHT HAND G 20 FLUSHES WELL, SITE CLEAR. ON NPO STATUS FOR NOW. NO SKIN ISSUES, NEEDS ASSIST IN TURNING AND REPOSITIONING. FALL PRECAUTION OBSERVED.BED ON LOWEST POSITION AND LOCKED.BED ALARM TRIGGERED.CALL LIGHT WITHIN REACH, WILL CONTINUE TO MONITOR.
[2022-05-17] MEDS ORDERED: CEFEPIME 1 GM in IV D5W 50 ML IV SCH (21:00)
[2022-05-17] MEDS: VANCOMYCIN 0.75 GM in IV D5W 250 ML IV SCH (21:52)
--- NOTE | 2022-05-18 | NUR ---
RN NOTE BS CHECKED AT 103 MG/DL, NO COVERGAE GIVEN PER SLIDING SCALE.
[2022-05-18] MEDS: BLOOD SUGAR DIAGNOSTIC 1 EACH STRIP IN SCH ×5 (01:03→23:44)
[2022-05-18] MEDS: CEFEPIME 2 GM in IV D5W 100 ML IV SCH ×2 (01:57→13:50)
--- NOTE | 2022-05-18 04:20 | NUR ---
RN NOTE TOLD RT TO COLLECT SAMPLE FOR SPUTUM CULTURE. PT IS NON COOPERATIVE AND HARD TO EXPECTORATE PHLEGM, INFORMED WILL CALL CLERK CASEY AT THE UNIT, EMILY TO ORDER HYPERTONIC SALINE 3% NEB. ORDER TAKEN AND CARRIED OUT.
[2022-05-18] MEDS ORDERED: SODIUM CL FOR INHALATION 3% 15 ML VIAL.NEB IH ONE (04:30)
--- NOTE | 2022-05-18 04:40 | NUR ---
RT Hypertonic saline not given, not yet available, waiting to be issued by pharmacy.
--- NOTE | 2022-05-18 06:44 | NUR ---
CUTTING TOOL SHARPENER CLOSING NOTES PT ON BED SLEEPING BUT EASILY AROUSABLE TO TOUCH AND VOICE, PT A/O X1, WITH PERIODS OF CONFUSION, ON O2 AT 3L NASAL CANULA O2 SAT AT 100%. AFEBRILE. SR AT 62 ON MONITOR. NO SIGNS OF PAIN, NO GRIMACINGS, WITH IV ACCESS ON RIGHT HAND G 20 FLUSHES WELL WITH NS RUNNING AT 75 MOL/HR. . ON NPO STATUS FOR NOW. NO SKIN ISSUES, NEEDS ASSIST IN TURNING AND REPOSITIONING. PT REMAINS ON NPO STATUS, ALL DUE IV MEDS GIVEN, KEPT DRY AND CLEAN, FALL PRECAUTION OBSERVED.BED ON LOWEST POSITION AND LOCKED.BED ALARM ON. CALL LIGHT WITHIN REACH, WILL ENDORSE TO AM SHIFT NURSE FOR CONTINUITY OF CARE.
[2022-05-18 07:03] LABS: BASOPHILS % (AUTO) 0.3 % (0.0-2.0); EOSINOPHILS % (AUTO) 0.6 % (0.0-6.0); HEMATOCRIT 38 % (39-51); HEMOGLOBIN 12.4 g/dL (13.5-17.5); LYMPHOCYTES # (AUTO) 1.6 K/uL (0.8-4.8); MEAN CORPUSCULAR HGB CONC 33 g/dl (31.0-36.0); MEAN CORPUSCULAR VOLUME 98 fL (80-96); MONOCYTES # (AUTO) 0.4 K/uL (0.1-1.30); NEUTROPHILS # (AUTO) 6.7 K/uL (1.8-8.9); NEUTROPHILS % (AUTO) 76.1 % (43.0-81.0); PLATELET COUNT (AUTO) 286 K/uL (150-450); RED BLOOD CELL COUNT(AUTO) 3.87 MIL/uL (4.5-6.0); WHITE BLOOD COUNT (AUTO) 8.8 K/uL (4.3-11.0)
[2022-05-18 07:40] LABS: CALCIUM, SERUM 8.6 mg/dL (8.5-10.1); CARBON DIOXIDE 29 mmol/L (21-32); CHLORIDE 108 mmol/L (98-107); CREATININE 0.6 mg/dL (0.6-1.3); GLUCOSE 103 mg/dL (74-106); MAGNESIUM 2.4 mg/dL (1.8-2.4); PHOSPHORUS 2.5 mg/dL (2.5-4.9); POTASSIUM 4.1 mmol/L (3.5-5.1); SODIUM SERUM 139 mmol/L (136-145); UREA NITROGEN, BLOOD 14 mg/dL (7-18)
[2022-05-18 07:41] LABS: THYROID STIMULATING HORMONE 2.285 uIU/mL (0.358-3.74)
[2022-05-18] MEDS: VANCOMYCIN 0.75 GM in IV D5W 250 ML IV SCH ×2 (08:14→20:51)
[2022-05-18] MEDS: PANTOPRAZOLE 40 MG VIAL IV SCH (08:14)
[2022-05-18] MEDS: IV NS 0.9% 1,000 ML IV PRN (11:33)
[2022-05-18 12:00] VITALS: BP 126/58
[2022-05-18] MEDS: GLUCERNA SHAKE 237 ML CAN PO SCH ×2 (12:36→18:14)
[2022-05-18] MEDS ORDERED: IV D5/ 0.9% NACL 1,000 ML IV PRN (14:30)
[2022-05-18] MEDS: ENOXAPARIN SODIUM 40 MG/0.4 ML DISP.SYRIN SQ SCH (15:57)
[2022-05-18 16:00] VITALS: BP 117/73
--- NOTE | 2022-05-18 19:21 | NUR ---
RN NOTE PT RESTING ON BED. A/O X1, WITH PERIODS OF CONFUSION, SWAZI SPEAKING. ON O2 AT 3L NASAL CANULA O2 SAT AT 100%. AFEBRILE. SR AT 68 ON MONITOR. NO SIGNS OF PAIN. WITH IV ACCESS ON RIGHT HAND G 20 FLUSHES WELL WITH IVF NS RUNNING AT 75 MOL/HR. . SEEN BY DIET UPGRADED TO PUREE AND THIN LIQUIDS, STRICT ASPIRATION PREC. ALL DUE MEDS GIVEN, KEPT DRY AND CLEAN, FALL PRECAUTION OBSERVED.BED ON LOWEST POSITION AND LOCKED.BED ALARM ON. CALL LIGHT WITHIN REACH, WILL ENDORSE TO PM SHIFT NURSE FOR CONTINUITY OF CARE.
--- NOTE | 2022-05-18 19:30 | NUR ---
FISH STRAIGHTENER OPENING NOTES RECEIVED PT ON BED, ALERT AND ORIENTED X1. PT IS NON VERBAL. ON O2 AT 3L NASAL CANNULA O2 SAT AT 100%. AFEBRILE. SR HR 60s ON MONITOR. NO SIGNS OF PAIN, NO GRIMACING, WITH IV ACCESS ON RIGHT HAND G 20 FLUSHES WELL, SITE CLEAR, RUNNING NS @ 75 CC /HR. FALL PRECAUTION OBSERVED. ALL SAFETY MEASURES IN PLACE: BED ON LOWEST POSITION AND LOCKED. BED ALARM ON. CALL LIGHT WITHIN REACH, WILL CONTINUE TO MONITOR.
[2022-05-18 20:00] VITALS: BP 128/82
[2022-05-18] MEDS: IV D5/ 0.9% NACL 1,000 ML IV SCH (23:20)
[2022-05-18] MEDS ORDERED: IV NS 0.9% 1,000 ML IV ONE (23:30)
--- NOTE | 2022-05-18 23:30 | NUR ---
RN NOTE PT NOTED TO HAVE LOW HR IN THE LOW 40s. O2 SAT IS 100% OTHER VS WNL. BS 147. INFORMED STRUCTURAL METAL WORKER GIL, ORDERED A BOLUS OF NS X1 AND CHANGED IVF TO D5 NS @ 100 CC/HR. CARRIED OUT ALL ORDERS. WILL CONTINUE TO MONITOR PT CLOSELY
[2022-05-18] MEDS: INSULIN REGULAR, HUMAN 100 UNIT/ML 3 ML VIAL SQ PRN (23:45)
[2022-05-19] VITALS: BP 130/64
[2022-05-19] MEDS: CEFEPIME 2 GM in IV D5W 100 ML IV SCH ×2 (00:34→12:03)
[2022-05-19 04:00] VITALS: BP 115/71
[2022-05-19] MEDS: BLOOD SUGAR DIAGNOSTIC 1 EACH STRIP IN SCH ×4 (06:28→23:48)
[2022-05-19] MEDS: INSULIN REGULAR, HUMAN 100 UNIT/ML 3 ML VIAL SQ PRN ×3 (06:29→23:48)
[2022-05-19 08:00] VITALS: BP 116/66
[2022-05-19 08:06] LABS: CALCIUM, SERUM 8.5 mg/dL (8.5-10.1); CREATININE 0.5 mg/dL (0.6-1.3); POTASSIUM 3.4 mmol/L (3.5-5.1)
[2022-05-19] MEDS: GLUCERNA SHAKE 237 ML CAN PO SCH ×3 (08:11→17:06)
[2022-05-19] MEDS: PANTOPRAZOLE 40 MG VIAL IV SCH (08:14)
[2022-05-19] MEDS: VANCOMYCIN 0.75 GM in IV D5W 250 ML IV SCH ×2 (08:14→20:22)
[2022-05-19] MEDS: ENOXAPARIN SODIUM 40 MG/0.4 ML DISP.SYRIN SQ SCH (09:42)
[2022-05-19] MEDS: IV D5/ 0.9% NACL 1,000 ML IV SCH ×2 (09:46→19:33)
[2022-05-19 12:00] VITALS: BP 142/70
[2022-05-19] MEDS ORDERED: POTASSIUM CHLORIDE 20 MEQ POWDER PACKET PO SCH (12:00)
--- NOTE | 2022-05-19 14:09 | NUR ---
RN NOTE PER REGI RANKIN TO GIVE LOVENOX SUBCUT.
[2022-05-19 16:00] VITALS: BP 117/82
--- NOTE | 2022-05-19 19:30 | NUR ---
QUALITY ASSURANCE INSPECTOR OPENING NOTE RECEIVED PT IN BED, ASLEEP. ON O2 AT 3L NASAL CANNULA, TOLERATING WELL WITH NO S/SX OF ACUTE RESPI DISTRESS NOTED AT THIS TIME. BREATHING IS EVEN AND UNLABORED. O2 SAT AT 100%. SB HR 50s ON MONITOR. WITH IV ACCESS NOTED ON RIGHT HAND #20G, PATENT, INTACT AND FLUSHES WELL, RUNNING D5 NS @ 100 CC/HR. ALL SAFETY MEASURES IN PLACE: BED LOCKED ON LOWEST POSITION. BED ALARM ON. CALL LIGHT WITHIN REACH, WILL CONTINUE TO MONITOR.
[2022-05-19 20:00] VITALS: BP 123/75
[2022-05-20] VITALS: BP 116/68
[2022-05-20 04:00] VITALS: BP 118/71
[2022-05-20] MEDS: IV D5/ 0.9% NACL 1,000 ML IV SCH ×2 (04:55→14:35)
[2022-05-20] MEDS: BLOOD SUGAR DIAGNOSTIC 1 EACH STRIP IN SCH ×3 (05:59→17:00)
[2022-05-20] MEDS: INSULIN REGULAR, HUMAN 100 UNIT/ML 3 ML VIAL SQ PRN (06:00)
--- NOTE | 2022-05-20 06:36 | NUR ---
RN NOTE PT REMAINED STABLE T/O THE NIGHT. PT WAS NON VERBAL THE WHOLE NIGHT AND DID NOT RESPOND TO ANY QUESTIONS. KEPT HIS EYES CLOSED THE ENTIRE NIGHT EVEN WHEN BEING TALKED TO. ALL DUE MEDS GIVEN. NEEDS ATTENDED TO. TURNED AND REPOSITIONED. WILL ENDORSE TO AM SHIFT NURSE FOR ROBBI.
[2022-05-20 07:09] LABS: CALCIUM, SERUM 8.1 mg/dL (8.5-10.1); CREATININE 0.5 mg/dL (0.6-1.3); POTASSIUM 3.1 mmol/L (3.5-5.1)
--- NOTE | 2022-05-20 07:57 | NUR ---
RN OPENING NOTES PATIENT IN BED. NONVERBAL. ON THREE LITERS NASAL CANULA. TELE MONITORING READING SINUS LISETTE WITH HEART RATE IN HIGH 50S. SKIN INTACT. IV ACCESS ON RIGHT HAND 20 GAUGE RUNNING FLUIDS ORDERED. SAFETY MEASURES IN PLACE WILL CONTINUE PLAN OF CARE AND ANTICIPATE NEEDS.
[2022-05-20 08:00] VITALS: BP 102/71
[2022-05-20] MEDS: GLUCERNA SHAKE 237 ML CAN PO SCH ×3 (08:33→16:58)
[2022-05-20] MEDS: PANTOPRAZOLE 40 MG/PACK PACK PO SCH (08:35)
[2022-05-20] MEDS: VANCOMYCIN 0.75 GM in IV D5W 250 ML IV SCH (08:35)
[2022-05-20] MEDS: ENOXAPARIN SODIUM 40 MG/0.4 ML DISP.SYRIN SQ SCH (08:38)
[2022-05-20] MEDS ORDERED: POTASSIUM CHLORIDE 20 MEQ POWDER PACKET PO SCH (09:00)
[2022-05-20] MEDS: POTASSIUM CL. PREMIX PERIPHER. 50 ML IV SCH ×4 (09:57→13:27)
[2022-05-20 12:00] VITALS: BP 136/89
[2022-05-20] MEDS: CEFEPIME 2 GM in IV D5W 100 ML IV SCH ×3 (13:52)
[2022-05-20 16:00] VITALS: BP 108/58
--- NOTE | 2022-05-20 18:33 | NUR ---
RN CLOSING NOTES PATIENT IN BED. NONVERBAL. ON THREE LITERS NASAL CANULA OXYGEN SATURATION AT 100%. TELE MONITORING READING SINUS LISETTE WITH HEART RATE AT 69 BPM. SKIN INTACT. IV ACCESS ON RIGHT HAND 20 GAUGE RUNNING FLUIDS ORDERED. SAFETY MEASURES IN PLACE WILL ENDORSE TO NIGHTSHIFT RN FOR CONTINUATION OF CARE.
[2022-05-20 20:00] VITALS: BP 129/69
--- NOTE | 2022-05-20 20:42 | NUR ---
BLUEPRINT ASSEMBLER OPENING NOTES: RECEIVED PATIENT SLEEP IN BED, COMFORTABLY, AROUSABLE TO VERBAL STIMULI, BED IN LOW POSITION, CALL LIGHTS WITHIN REACH, NO COMPLAIN OF PAIN AND DISCOMFORT AT THIS TIME, ON 3LPM VIA NASAL CANNULA SATURATING WELL, PATIENT IS A/OX1 NONE VERBAL, ON TELE [id number],IV LINE AT RT HAND #20 WITH ONGOING D51 1/2 NSS@100ML/HR INFUSING WELL, PARTIENT KEPT CLEAN AND DRY ALL NEEDS MET WILL CONTINUE TO MONITOR.
[2022-05-21] VITALS: BP 116/74
[2022-05-21] MEDS: INSULIN REGULAR, HUMAN 100 UNIT/ML 3 ML VIAL SQ PRN (00:19)
[2022-05-21] MEDS: BLOOD SUGAR DIAGNOSTIC 1 EACH STRIP IN SCH ×4 (00:19→17:33)
--- NOTE | 2022-05-21 00:19 | NUR ---
RN NOTES: BLOOD SUGAR-131/ 2 UNITS INSULIN GIVEN PER SLIDING SCALE
[2022-05-21] MEDS: IV D5/ 0.9% NACL 1,000 ML IV SCH ×3 (01:08→15:54)
[2022-05-21] MEDS: CEFEPIME 2 GM in IV D5W 100 ML IV SCH ×2 (01:21→12:15)
[2022-05-21 04:00] VITALS: BP 139/81
--- NOTE | 2022-05-21 06:42 | NUR ---
RN NOTES: BLOOD SUGAR-100 NO INSULIN GIVEN
--- NOTE | 2022-05-21 06:51 | NUR ---
VICE PRESIDENT OF BUSINESS DEVELOPMENT CLOSING NOTES: PATIENT SLEEP IN BED COMFORTABLY, BED IN LOW POSITION CALL LIGHTS WITHIN REACH, NO COMPLAIN OF PAIN AND DISCOMFORT AT THIS TIME, ON O2 INHALATION AT 3LPM SATURATING WELL, PATIENT ON TELEMONITOR-SB 54-55 IV LINE AT RIGHT HAND #20 WITH ONGOING D5 1/2 NSS@100 ML/HR INFUSING WELL, PATIENT KEPT CLEAN AND DRY ALL NEEDS MET ENDORSE TO INCOMING SHIFT.
[2022-05-21 07:52] LABS: CALCIUM, SERUM 8.2 mg/dL (8.5-10.1); CREATININE 0.4 mg/dL (0.6-1.3); POTASSIUM 3.7 mmol/L (3.5-5.1)
[2022-05-21 08:00] VITALS: BP 136/61
[2022-05-21] MEDS: GLUCERNA SHAKE 237 ML CAN PO SCH ×3 (08:44→17:32)
[2022-05-21] MEDS: PANTOPRAZOLE 40 MG/PACK PACK PO SCH (08:44)
[2022-05-21] MEDS: ENOXAPARIN SODIUM 40 MG/0.4 ML DISP.SYRIN SQ SCH (08:46)
[2022-05-21 12:00] VITALS: BP 121/72
[2022-05-21 16:00] VITALS: BP 127/75
[2022-05-21] MEDS ORDERED: APIXABAN 5 MG TABLET PO SCH (18:00)
[2022-05-21] MEDS: APIXABAN 5 MG TABLET PO SCH (18:47)
--- NOTE | 2022-05-21 19:06 | NUR ---
RN CLOSING PT IN BED BREATHING IS EVEN AND UNLABORED NO S/S OF DISTRESS NOTED. PT WAS FOUND TO HAVE RIGHT ARM DVT IN CEPHALIC VEIN, DOCTOR NOTIFIED ELIQUIS ORDERED 10MG Q 5 DAYS THE WILL BE SWITCHED TO 5MG BID. D51/2 NS RUNNING NO S/S OF INFILTRATION.
--- NOTE | 2022-05-21 19:20 | NUR ---
RN NOTE Patient in bed, AO x 1, in no acute distress, saturation at 98% on 3L via NC, SB on the monitor, HR is 57. IV line at L hand 20g patent and flushing well, with D5NS infusing at 100 ml/hr. Safety measures in place, will continue to monitor and reassess.
[2022-05-21 20:00] VITALS: BP 148/84
[2022-05-22] VITALS: BP 138/77
[2022-05-22] MEDS: CEFEPIME 2 GM in IV D5W 100 ML IV SCH ×2 (00:36→13:54)
[2022-05-22] MEDS: BLOOD SUGAR DIAGNOSTIC 1 EACH STRIP IN SCH ×3 (00:43→12:11)
[2022-05-22] MEDS: INSULIN REGULAR, HUMAN 100 UNIT/ML 3 ML VIAL SQ PRN (00:49)
[2022-05-22] MEDS: IV D5/ 0.9% NACL 1,000 ML IV SCH (03:40)
[2022-05-22 04:00] VITALS: BP 126/73
[2022-05-22 07:45] LABS: CALCIUM, SERUM 8.2 mg/dL (8.5-10.1); CREATININE 0.5 mg/dL (0.6-1.3); POTASSIUM 3.2 mmol/L (3.5-5.1)
[2022-05-22 08:00] VITALS: BP 121/69
[2022-05-22] MEDS: GLUCERNA SHAKE 237 ML CAN PO SCH ×2 (08:01→12:11)
[2022-05-22] MEDS ORDERED: APIXABAN 5 MG TABLET PO SCH (09:00)
[2022-05-22] MEDS: PANTOPRAZOLE 40 MG/PACK PACK PO SCH (11:32)
[2022-05-22] MEDS: APIXABAN 5 MG TABLET PO SCH (11:35)
[2022-05-22 12:00] VITALS: BP 124/72
[2022-05-22] MEDS ORDERED: POTASSIUM CHLORIDE 20 MEQ POWDER PACKET PO ONE (13:00)
--- NOTE | 2022-05-22 15:55 | NUR ---
RN NOTE CALLED [facility] AND GAVE REPORT TO BASSAM ÁLVAREZ . ANTICIPATED LOAN DOCUMENTATION SPECIALIST TIME AT 1600.
--- NOTE | 2022-05-22 16:37 | NUR ---
SLITTER SCORER CUT OFF OPERATOR NOTES PT DISCHARGED TO [facility] VIA GURNEY IN STABLE CONDITION A/OX1 ON 3L NC. IV ACCESS ON LH #20 PATENT SL, NO INFILTRATION NOTED. EXIT FOLDER AND BELONGINGS LIST ACCOUNTED FOR AND HANDED TO [facility]W. ID BAND AND TELE MONITOR REMOVED. CHARGE NURSE AWARE.
[2022-05-27] MEDS ORDERED: APIXABAN 5 MG TABLET PO SCH (17:00)
== END 2022-05-22 16:19 | DRG 871 ==
LOC: ER 07:48 → TELE1 13:57
PROVIDERS: ADMIT Nurse Practitioner Acute Care; ATTEND Internal Medicine
DX: A41.9 Sepsis, unspecified organism (principal); E43 Unspecified severe protein-calorie malnutrition; G93.41 Metabolic encephalopathy; J96.21 Acute and chronic respiratory failure with hypoxia; R53.2 Functional quadriplegia; J15.6 Pneumonia due to other Gram-negative bacteria; F02.83 Dementia in other diseases classified elsewhere, unspecified severity, with mood disturbance; R64 Cachexia; L03.113 Cellulitis of right upper limb; I82.611 Acute embolism and thrombosis of superficial veins of right upper extremity; Z20.822 Contact with and (suspected) exposure to COVID-19; E11.9 Type 2 diabetes mellitus without complications; I10 Essential (primary) hypertension; E78.5 Hyperlipidemia, unspecified; G30.9 Alzheimer's disease, unspecified; J45.909 Unspecified asthma, uncomplicated; F25.9 Schizoaffective disorder, unspecified; Z88.5 Allergy status to narcotic agent; Z88.8 Allergy status to other drugs, medicaments and biological substances; Z79.899 Other long term (current) drug therapy; Y95 Nosocomial condition; E88.09 Other disorders of plasma-protein metabolism, not elsewhere classified; Z86.73 Personal history of transient ischemic attack (TIA), and cerebral infarction without residual deficits; F31.9 Bipolar disorder, unspecified; F29 Unspecified psychosis not due to a substance or known physiological condition
CPT/HCPCS: 36415; 71045-TC; 80048-TC; 80076-TC; 80202-TC; 81001; 82962-TC; 83605-TC; 83735-TC; 84100-TC; 84443-TC; 84484-TC; 85025-TC; 85730-TC; 87040-TC; 87070-TC; 87081-TC; 87086-TC; 87186-TC; 92526; 92611-TC; 93307-TC; 93971-TC; 94799-TC; A4218; A4349; C9113; C9803; G0378; J0692; J1650; J1815; J2543; J3370; J3480; J7030; J7040; J7042; J7060; U0003